=== PATIENT | female | born 1955 | race Caucasian/White ===

== ENCOUNTER 2017-07-24 21:14 | Observation (INO) | payer MEDICARE, SELFPAY ==
[2017-07-24 21:15] VITALS: BP 143/74; PULSE 85; RESP 16; TEMP 36.5; O2SAT 92; BMI 25.0
--- NOTE | 2017-07-24 21:18 | NURSING ---
CALLED FOR EKG PER RN REQUEST, PULLED OLD EKG'S FOR
--- NOTE | 2017-07-24 21:52 | EKG12_ITS ---
Test Reason : CP Blood Pressure : / mmHG Vent. Rate : 084 BPM Atrial Rate : 084 BPM P-R Int : 132 ms QRS Dur : 090 ms QT Int : 364 ms P-R-T Axes : -05 -41 023 degrees QTc Int : 430 ms Normal sinus rhythm Left axis deviation Abnormal ECG Confirmed by TRAY JUAN, LEIDY ([id number]), purchase request editor ABRAM GRANADO ([id number]) on 07/26/2017 2:37:36 PM Referred By: DIEGO Confirmed By:LEIDY FELIZ MD
--- NOTE | 2017-07-24 21:52 | RAD_ITS ---
STUDY: X-RAY CHEST REASON FOR EXAM: Female, 62 years old. Chest pain TECHNIQUE: Single frontal view of the chest. COMPARISON: None. FINDINGS: Right basilar atelectasis without acute alveolar disease. There is no demonstrated pleural abnormality. Normal size heart. Normal mediastinum and robin. Normal visualized pulmonary arteries. Normal visualized aortic arch and descending thoracic aorta. Normal visualized thoracic spine. Normal visualized ribs, clavicles, and shoulders. There is no demonstrated abnormality of the visualized soft tissue structures of the upper abdomen. RAD/Chest 1 View (Portable) IMPRESSION: Right basilar atelectasis without acute alveolar disease. Electronically Signed: Edgardo Hare MD at 22:14 EDT Tel , Service support ,
[2017-07-24 22:00] VITALS: BP 132/74; PULSE 85
--- NOTE | 2017-07-24 22:14 | ED.VISSUMM ---
- ER Visit Summary Date of Service: 07/24/17 Chief Complaint: Chest discomfort described as someone laying bricks on my chest History of Present Illness: The patient is a 62 F who presents with midsternal chest discomfort that started at 1999 while looking through magazines. She describes it as if someone is laying multiple bricks on her chest. There is associated with nausea, dyspnea without diaphoresis. She has a history of coronary disease, type 1 diabetes, hypertension hypercholesterolemia. She also reports leg swelling does have history of congestive heart failure. She denies known history of coronary disease. She had a stress test because of anxiety. She states that stress test was negative. Patient denies headache, ocular, visual or auditory symptoms. I trouble speech or swallowing. Denies any back pain or extremity pain. She denies any urologic symptoms. She denies any neurologic symptoms. Physical Examination: Patient is a pleasant elderly woman who does not appear in much discomfort. Head is atraumatic normocephalic. Pupils are equal round reactive. Extraocular muscles are intact. TMs are pearly white with landmarks noted. Nares patent with no drainage. Posterior pharynx without erythema or exudate. Uvula is midline. There is no dysphonia or dysphasia. Trachea is midline. There is no stridor with auscultation of the neck. Heart is regular without murmur, gallop or rub. S1 and S2 are normal. Lungs are clear to auscultation with good movement of air bilaterally. There is no reproducible chest pain. Abdomen is soft nontender with no hepatosplenomegaly. Negative Sauceda sign. Bowel sounds are present normal. She does have edema of both right and left lower externally. Skin appears pale. Neuro exam is nonfocal. Test Results: EKG reveals a sinus rhythm with no acute ischemic changes. Two-view portable chest x-ray interpreted by nm reveals minimal chronic changes. CBC is unremarkable. Basic metabolic panel is remarkable for glucose of 677 with a normal CO2 and anion gap. There is evidence of pseudohyponatremia with sodium 131. Troponin is less than 0.02. Emergency Department Course and Treatment: Patient was treated with aspirin and 2 nitro prior to presentation. Her pain improved markedly after 2 nitro. She will receive a third nitro and cardiac workup was undertaken. Need to evaluate for cardiac versus pulmonary versus GI etiology. In light of her description associated symptoms and risk factors concerned this is cardiac and will require admission for provocative testing. To treat patient's hyperglycemia she was given a fluid bolus and 15 units of regular insulin subcu. Treatment Plan: Patient will need admission for her hyperglycemia and to evaluate her chest heaviness. Disposition: Admit PCU Impression: 1. Chest pain 2. Hyperglycemia nonketotic, 677 3. History of type 1 diabetes 4. History of hypercholesterolemia 5. History of hypertension 6. History of congestive heart failure This note was generated with [employer] dictation software. It may contain incorrect words, spelling, and punctuation that were not noted in review of the chart prior to signing ED Disposition - Plan for ED Patient: Chief Complaint: Chest Pain Referrals: Edwin Perez [Primary Care Provider] -
[2017-07-24 22:17] LABS: Absolute Lymphocyte Count 1.41 X10^3/ul (0.83-4.51); Basophil# 0.03 X10^3/uL; Basophil% 0.6 % (0-1); Eosinophil# 0.06 X10^3/uL; Eosinophils% 1.3 % (0-5); Hematocrit 46.9 % (37-47); Hemoglobin 15.7 g/dl (12.0-15.0); Lymphocyte # 1.41 X10^3/ul (4.0); Lymphocyte % 29.5 % (19-41); Mean Corp Hgb Conc 33.5 g/gl (32-36); Mean Corpuscular Hgb 29.5 pg (27.0-32.0); Mean Platelet Vol. 9.8 fl (6.2-12.0); Monocyte# 0.32 X10^3/uL; Monocyte% 6.7 % (0-10); Neutrophil # 2.95 X10^3/uL (2.7-7.7); Neutrophil % 61.7 % (47-70); Platelet Count 174 K/mm3 (150-450); RBC Distribution Width CV 14.6 % (11.6-14.6); RBC Distribution Width SD 46.6 fl (35.1-43.9); Red Blood Count 5.33 M/mm3 (4.2-5.4); White Blood Count 4.8 K/mm3 (4.4-11.0)
[2017-07-24 22:20] LABS: POSITIVE COUNT NO; POSITIVE DIFFERENTIAL NO; POSITIVE MORPHOLOGY NO
[2017-07-24 22:29] LABS: Anion Gap 6 (5-15); BUN 18 mg/dL (7-18); BUN/Creat Ratio 17.1 RATIO (10-20); Calcium,Total 9.3 mg/dL (8.5-10.1); Chloride 100 mmol/L (98-107); Creatinine, Serum 1.05 mg/dL (0.55-1.02); EST Glomerular Filtration Rate 57 mL/min (>60); Est Glom Filt Rate - Afr Amer 69 mL/min (>60); Estimated Creatinine Clearance 54.71 ml/min; Glucose 677 mg/dL (74-106); Sodium Level 131 mmol/L (136-145)
--- NOTE | 2017-07-24 22:50 | PCM.HP.STD ---
Problem List (1) CHF (congestive heart failure) Status: Acute (2) Atypical chest pain Status: Acute (3) Hypertension Status: Chronic (4) Chronic back pain Status: Chronic (5) Sepsis Status: Acute (6) Community acquired pneumonia Status: Resolved (7) Diabetes mellitus Status: Chronic Qualifiers: Diabetes mellitus type: type 2 History of Present Illness Date of Admission: 07/24/17 Chief Complaint: chest pain today The patient is a 62 year old F with history of congestive heart failure with no medical record here, she follows anesthesiologist and critical care in [facility] came to ER with sudden onset of chest pain in the evening today. Patient further said chest pain was midsternal, while she was sitting, localized, associated with mild shortness of breath, dizziness, lightheadedness without diaphoresis. Patient has history of congestive heart failure and has bilateral lower extremity swelling. She does not remember any recent cardiac catheter stress test. In ED, her vitals were stable; except pulse ox 94% on 2 L oxygen. Chest x-ray shows right basilar atelectasis. Basic blood work shows high blood sugar 677. Anion gap normal bicarb 25. [] Past Medical History Past Medical History (Chronic Problems): Chronic Problems Hypertension (Chronic) Chronic back pain (Chronic) Diabetes mellitus (Chronic) Allergies acetaminophen [From Darvocet-N] Allergy (Verified 07/24/17 21:20) Unknown ferrous gluconate Allergy (Verified 07/24/17 21:20) Unknown propoxyphene [From Darvocet-N] Allergy (Verified 07/24/17 21:20) Unknown Sulfa (Sulfonamide Antibiotics) Allergy (Verified 07/24/17 21:20) Other fluoxetine [From Prozac] Adverse Reaction (Verified 07/24/17 21:20) Other Home Medications: Ambulatory Orders Medication Instructions Recorded Aspirin [Aspirin, Baby] 81 mg PO DAILY@0800 07/11/15 Carvedilol [Coreg (Beta Cata)] 12.5 mg PO BID 07/12/15 Cyclobenzaprine [Flexeril] 10 mg PO TID PRN PRN 07/12/15 Famotidine [Pepcid] 20 mg PO BID 07/12/15 Lisinopril [Zestril] 5 mg PO DAILY 07/12/15 Metformin HCl [Glucophage] 1,000 mg PO BIDCM 07/12/15 traMADol [Ultram] 50 mg PO Q6H PRN PRN 07/12/15 Ondansetron [Zofran Odt] 8 mg PO Q8H PRN PRN #10 tab 04/30/16 Atorvastatin Calcium [Lipitor] 40 mg PO DAILY 05/21/16 Latanoprost 0.005% [Xalatan 1 drop EACH EYE BREAKFAST 05/21/16 Opthalmic] Insulin Aspart [Novolog Flexpen 0 units SC 4X/DAY 12/15/16 ([facility])] Insulin Detemir [Levemir FlexPen] 80 units SC BREAKFAST 12/15/16 Timolol [Betimol] 1 drop EACH EYE BID 12/15/16 Insulin Detemir [Levemir FlexPen] 40 units SC DINNER 07/24/17 Surgical History: noncontributory Psychiatric History: No pertinent psych hx Smoking Status: Never smoker - *Family History Maternal History Items: Cancer Paternal History Items: Heart Disease Review of Systems Constitutional: Reports: Weakness. Denies: Chills, Fever, Weight Change HEENT: Denies: Head Aches, Sinus Congestion, Sinus Drainage Cardiovascular: Reports: Chest Pain, Edema. Denies: Palpitations Respiratory: Reports: Shortness of breath upon exertion. Denies: Cough, Shortness of breath at rest, Sputum production Gastrointestinal: Denies: Abdominal Pain, Nausea, Vomiting Genitourinary: Denies: Dysuria Musculoskeletal: Reports: Joint Pain. Denies: Joint Tenderness Skin: Denies: Rash, Wounds Neurological: Denies: Numbness, Tingling, Focal weakness Psychiatric: Denies: Anxiety, Depression, Homicidal Ideations, Suicidal Ideations Hematologic/ Lymphatic: Denies: Easy Bruising, Easy Bleeding VTE Information - Inpt Only VTE Present on Admission: No VTE Mechan Device Prophylaxis: SCD's VTE Pharm Prophylaxis ordered?: Yes Patient Problems: Active and Suspected Problems CHF (congestive heart failure) (Acute) Atypical chest pain (Acute) - Physical Exam General: Alert, Oriented x3, Cooperative HEENT: Atraumatic, PERRLA, EOMI, Normocephalic Neck: Supple, No JVD, Negative Carotid Bruits Lungs: Diminished - In bilateral lung bases, right worse than left, - - chronic dyspnea on exertion. Orthopnea Cardiovascular: Regular rate, No murmurs Abdomen: Bowel Sounds Present, Soft, Non Tender Extremities: No edema, Capillary Refill Less than 3 Seconds Skin: No rashes, No breakdown Musculoskeletal: No Tenderness to Palpation of Joints or Extremities Neurological: Cranial nerves II-XII grossly intact Psych/Mental Status: Normal Affect, Appropriate Vital Signs Temp Pulse Resp BP Pulse Ox 97.7 F L 85 16 132/74 H 92 07/24/17 21:15 07/24/17 22:00 07/24/17 21:15 07/24/17 22:00 07/24/17 21:15 Oxygen Flow Rate (L/min) 2 Oxygen Delivery Method Nasal Cannula Weight: 160 lb Body Mass Index (BMI) 25.0 Finger Stick Blood Glucose 231 Laboratory Tests Past 24 Hrs 07/24/17 07/24/17 21:29 21:29 WBC 4.8 RBC 5.33 Hgb 15.7 H Hct 46.9 MCV 88.0 MCH 29.5 MCHC 33.5 RDW 14.6 RDW Differential 46.6 H Plt Count 174 MPV 9.8 Immature Gran % (Auto) 0.200 Neut % (Auto) 61.7 Lymph % (Auto) 29.5 [place] % (Auto) 6.7 Eos % (Auto) 1.3 Baso % (Auto) 0.6 Absolute Neuts (auto) 3.0 Absolute Lymphs (auto) 1.41 Total Counted Not Reportable Sodium 131 L Potassium 5.0 Chloride 100 Carbon Dioxide 25.0 Anion Gap 6 BUN 18 Creatinine 1.05 H Estim Creat Clear Calc 54.71 Est GFR (MDRD) Af Amer 69 Est GFR (MDRD) Non-Af 57 L BUN/Creatinine Ratio 17.1 Glucose 677 H* Calcium 9.3 Troponin I < 0.02 Assessment/Plan Active and Suspected Problems CHF (congestive heart failure) (Acute) Atypical chest pain (Acute) The patient is a 62 year old F with history of congestive heart failure with no medical record here, she follows anesthesiologist and critical care in [facility] came to ER with sudden onset of chest pain in the evening today. Patient further said chest pain was midsternal, while she was sitting, localized, associated with mild shortness of breath, dizziness, lightheadedness without diaphoresis. Patient has history of congestive heart failure and has bilateral lower extremity swelling. She does not remember any recent cardiac catheter stress test. In ED, her vitals were stable; except pulse ox 94% on 2 L oxygen. Chest x-ray shows right basilar atelectasis. Basic blood work shows high blood sugar 677. Anion gap normal bicarb 25. 1. Atypical chest pain; most probably unstable angina patient denies history of coronary artery disease. Patient is being admitted on PCU. On ACS protocol with serial cardiac enzymes. If patient troponin is negative and does not seem to be in worsening heart failure in the morning can have Lexiscan stress test. 2D echo ordered. 2. History of congestive heart failure, type and etiology unclear. Try to get medical record from the anesthesiologist and critical care in [place]. Patient is on Coreg, aspirin, lisinopril and atorvastatin which are continued. 3. Diabetes mellitus type 2 with hyperglycemia: Currently patient has mild hyponatremia secondary to hyperglycemia. On Levemir. Accu-Chek before meals and at bedtime cover with NovoLog sliding scale. 4. Other chronic comorbidities include chronic back pain and history of pneumonia.: Home medication reconciliation done. DVT prophylaxis: On heparin 5000 units subcu changes twice daily and bilateral SCDs Laboratory Results 07/24/17 21:29: WBC 4.8, RBC 5.33, Hgb 15.7 H, Hct 46.9, MCV 88.0, MCH 29.5, MCHC 33.5, RDW 14.6, RDW Differential 46.6 H, Plt Count 174, MPV 9.8, Immature Gran % (Auto) 0.200, Neut % (Auto) 61.7, Lymph % (Auto) 29.5, [place] % (Auto) 6.7, Eos % (Auto) 1.3, Baso % (Auto) 0.6, Absolute Neuts (auto) 3.0, Absolute Lymphs (auto) 1.41, Total Counted Not Reportable 07/24/17 21:29: Sodium 131 L, Potassium 5.0, Chloride 100, Carbon Dioxide 25.0, Anion Gap 6, BUN 18, Creatinine 1.05 H, Estim Creat Clear Calc 54.71, Est GFR (MDRD) Af Amer 69, Est GFR (MDRD) Non-Af 57 L, BUN/Creatinine Ratio 17.1, Glucose 677 H*, Calcium 9.3, Troponin I < 0.02 Clinical Impression(s) from Imaging Studies Chest X-Ray 07/24/17 21:52 IMPRESSION: Right basilar atelectasis without acute alveolar disease. Electronically Signed: Edgardo Hare MD at 22:14 EDT Tel , Service support , Code Visit Inpatient E&M: 51339 Init Hosp L3
[2017-07-24 22:56] VITALS: PULSE 77; RESP 16; O2SAT 94
[2017-07-24 23:16] VITALS: BP 119/69; PULSE 74; RESP 16; TEMP 36.4; O2SAT 96
[2017-07-24 23:21] VITALS: BP 119/69; PULSE 76; RESP 16; O2SAT 97
--- NOTE | 2017-07-24 23:23 | ED.RN ---
called and left message at this time for on information on admission
[2017-07-25] VITALS (12 sets, daily range): BP systolic 95–116; BP diastolic 54–65; PULSE 62–75; RESP 16–18; TEMP 36.5–36.6; O2SAT 93–100; BMI 26.8
[2017-07-25 00:38] LABS: Magnesium 1.9 mg/dL (1.6-2.6)
[2017-07-25] MEDS: Furosemide 40 MG/4 ML Vial IV ×2 (00:51→11:19)
[2017-07-25 00:58] LABS: BNP,B-Type NATRIURETIC PEPTIDE 14.2 pg/mL (0-100)
--- NOTE | 2017-07-25 04:00 | EKG12_ITS ---
Test Reason : AM EKG Blood Pressure : / mmHG Vent. Rate : 060 BPM Atrial Rate : 060 BPM P-R Int : 172 ms QRS Dur : 096 ms QT Int : 448 ms P-R-T Axes : 041 -50 038 degrees QTc Int : 448 ms Normal sinus rhythm Low voltage QRS Left anterior fascicular block Abnormal ECG When compared with ECG of 15-DEC-2016 13:05, Vent. rate has decreased BY 30 BPM Nonspecific T wave abnormality no longer evident in Anterior leads QT has shortened Confirmed by TRAY JUAN, LEIDY ([id number]), editorial project manager ABRAM GRANADO ([id number]) on 07/29/2017 3:46:54 PM Referred By: WILBERTO Confirmed By:LEIDY FELIZ MD
[2017-07-25 05:35] LABS: Hematocrit 38.3 % (37-47); Hemoglobin 12.9 g/dl (12.0-15.0); Mean Corp Hgb Conc 33.7 g/gl (32-36); Mean Corpuscular Hgb 28.8 pg (27.0-32.0); Mean Corpuscular Volume 85.5 fL (81-99); Mean Platelet Vol. 9.4 fl (6.2-12.0); Platelet Count 168 K/mm3 (150-450); RBC Distribution Width CV 14.5 % (11.6-14.6); RBC Distribution Width SD 45.3 fl (35.1-43.9); Red Blood Count 4.48 M/mm3 (4.2-5.4); White Blood Count 4.4 K/mm3 (4.4-11.0)
[2017-07-25 05:37] LABS: Scan Indicated on CBC? Y/N NO
[2017-07-25 05:54] LABS: International Normalized Ratio 1.1; Partial Thromboplast Time 23.9 Seconds (24.1-36.2); Prothrombin Time (Protime)PT. 14.1 SECONDS (11.7-14.9)
--- NOTE | 2017-07-25 05:55 | ECHOD_ITS ---
Reason For Study: CHF Procedure This was a 2D Doppler, Color Flow transthoracic echocardiogram. Exam performed in department. Left Ventricle Normal LV size. Left ventricular systolic function is normal. The estimated ejection fraction is 60 %. Transmitral diastolic flow velocities suggest mild (stage 1) diastolic dysfunction (reversed pattern). No regional wall motion abnormalities noted. Right Ventricle Normal RV size. Normal systolic function. Atria Normal left atrium. Normal right atrium. Mitral Valve Normal mitral valve. Trivial mitral valve insufficiency. Tricuspid Valve Normal tricuspid valve. Mild to moderate (1-2+) tricuspid valve insufficiency. Pulmonary artery systolic pressure is 29 mmHg. Aortic Valve Trisinus/trileaflet aortic valve. Mild focal aortic valve calcification. Trivial eccentric aortic valve insufficiency. Pulmonic Valve Normal pulmonic valve. Great Vessels Normal aortic root. The pulmonary artery is normal size. Normal inferior vena cava. Pericardium/Pleural No pericardial effusion. MMode/2D Measurements & Calculations LVIDd: 4.0 cm IVSd: 1.2 cm LVOT diam: 2.1 cm LVIDs: 2.9 cm LVPWd: 1.1 cm LVOT area: 3.5 cm2 RVDd: 2.8 cm FS: 27.3 % Ao root diam: 3.7 cm LAV(MOD-bp): 50.6 ml EDV(MOD-sp4): 99.1 ml LAV(MOD-bp) Indexed: 27.5 ml/m2 ESV(MOD-sp4): 36.6 ml LAV(MOD-sp2): 58.4 ml EF(MOD-sp4): 63.1 % LAV(MOD-sp4): 34.9 ml SV(MOD-sp4): 62.5 ml LA A4 area: 13.5 cm2 RA A4 area: 13.4 cm2 Doppler Measurements & Calculations MV E max eris: 63.1 cm/sec Lat Peak E' Eris: 11.6 cm/sec Med Peak E' Eris: 7.9 cm/sec MV A max eris: 84.7 cm/sec E/E' lat: 5.4 E/E' med: 8.0 MV E/A: 0.75 Ao V2 max: 210.1 cm/sec AI max eris: 342.0 cm/sec LV V1 max: 80.4 cm/sec Ao max P.7 mmHg AI max P.8 mmHg LV V1 max P.6 mmHg Ao V2 mean: 143.9 cm/sec AI dec slope: 119.8 cm/sec2 LV V1 mean P.4 mmHg Ao mean P.5 mmHg AI P1/2t: 836.0 msec LV V1 mean: 54.4 cm/sec Ao V2 VTI: 45.3 cm LV V1 VTI: 19.3 cm DEDRICK(I,D): 1.5 cm2 DEDRICK(V,D): 1.3 cm2 SV(LVOT): 66.6 ml TR max eris: 248.9 cm/sec TR max P.8 mmHg Interpretation Summary Normal LV size. Left ventricular systolic function is normal. The estimated ejection fraction is 60 %. Transmitral diastolic flow velocities suggest mild (stage 1) diastolic dysfunction (reversed pattern). Trivial eccentric aortic valve insufficiency. Mild focal aortic valve calcification. Ordering Physician: Guillermo Kelly Referring Physician: DALY PAGE Performed By: Leida Romano, BRADY, RVT
[2017-07-25] MEDS: Aspirin E.C. 81 MG Tablet PO (06:14)
[2017-07-25] MEDS: Lisinopril 5 MG Tablet PO (06:14)
[2017-07-25 06:20] LABS: Bedside Glucose 224 mg/dL (70-110)
[2017-07-25 07:28] LABS: ALB/GLOB Ratio 0.7 RATIO (0.9-2.4); AST(SGOT) 10 U/L (15-37); Alanine Aminotransfer ALT/SGPT 11 U/L (13-56); Albumin, Serum 2.6 g/dL (3.2-5.0); Alkaline Phosphatase 93 U/L (45-117); Anion Gap 7 (5-15); BUN 23 mg/dL (7-18); BUN/Creat Ratio 42.4 RATIO (10-20); Calcium,Total 9.2 mg/dL (8.5-10.1); Chloride 103 mmol/L (98-107); Cholesterol 152 mg/dL (200); Creatinine, Serum 0.54 mg/dL (0.55-1.02); EST Glomerular Filtration Rate 121 mL/min (>60); Est Glom Filt Rate - Afr Amer 147 mL/min (>60); Estimated Creatinine Clearance 106.39 ml/min; Globulin 3.9 g/dL (2.2-4.2); Glucose 202 mg/dL (74-106); High Density Lipoprotein 54 mg/dL; Potassium 3.5 mmol/L (3.5-5.1); Protein, Total 6.5 g/dL (6.4-8.2); Sodium Level 137 mmol/L (136-145); Thyroid Stim Hormone (TSH) 2.19 uIU/mL (0.358-3.74); Triglycerides 117 mg/dL; Very Low Density Lipoprotein 23 mg/dL (5-40)
[2017-07-25 08:09] LABS: Hemoglobin A1c 12.9 % (4.2-6.3)
--- NOTE | 2017-07-25 09:52 | STRESSREP ---
Stress Test Report Pharmacologic myocardial perfusion stress test. 62-year-old lady with a history of chest pain. Stress protocol: Resting EKG demonstrates normal sinus rhythm with a rate of 68 bpm normal intervals and noted resting blood pressure is 114/78 mmHg. 0.4 mg of regadenoson was infused per usual protocol followed by rapid intravenous saline flush injection continuous EKG monitoring was performed. At rest there were no ST or T-wave changes noted suggest abnormal flow reserve at peak infusion no ST or T-wave changes were noted suggest abnormal flow reserve. The maximum heart rate attained was 98 bpm which was 61% of maximum predicted heart rate the maximum workload was 1 metabolic equivalent. No clinical angina was noted. The resting blood pressure is 114/78 with a peak blood pressure 120/70 mmHg. Myocardial perfusion protocol: 11.8 mCi of technetium 99m sestamibi was injected at rest. 0.4 mg regadenoson was infused per usual protocol. At peak infusion 36.0 mCi of technetium 99m sestamibi was injected stress images were obtained stress and rest images were reconstructed and compared in the short axis vertical long and horizontal long axis. Gated images were also obtained. Perfusion SPECT analysis: Review of the stress images demonstrate normal uptake of tracer noted in all areas of the myocardium. The resting images similarly demonstrate normal uptake of tracer noted in all areas of the myocardium. No areas of reversibility are noted suggest ischemia no previous infarct is noted. Gated SPECT analysis: The gated ejection fraction is noted to be 67%. Conclusion: Normal pharmacologic myocardial perfusion stress test. Preserved ejection fraction.
[2017-07-25] MEDS: Carvedilol 12.5 MG Tablet PO (11:18)
[2017-07-25] MEDS: Latanoprost 0.005% 1 Bottle 1 DRP EACH EYE (11:18)
[2017-07-25] MEDS: Heparin Injection (Vial) 5,000 UNIT/ML VIAL 5000 UNIT SC (11:19)
[2017-07-25] MEDS: Famotidine 20 MG Tablet PO (11:20)
[2017-07-25 11:21] LABS: Bedside Glucose 253 mg/dL (70-110)
[2017-07-25] MEDS: Timolol 0.5% 5ML OPTH.BTL 1 DRP EACH EYE (11:27)
[2017-07-25] MEDS: Metoprolol Tartrate 25 MG Tablet 12.5 MG PO (11:29)
[2017-07-25] MEDS: Nitroglycerin Oint 1 INCH PACKET TRANSDERM. (11:30)
--- NOTE | 2017-07-25 13:12 | PCM.DC ---
- Discharge Diagnoses Current Active Problems: Current Active and Chronic Problems CHF (congestive heart failure) (Acute) Atypical chest pain (Acute) You will use the following diet at home:: Cardiac Discharge Activity: Return to Normal Activity Instructions: ED Chest Pain NonCardiac Allergies/Adverse Reactions: Allergies acetaminophen [From Darvocet-N] Allergy (Verified 07/24/17 21:20) Unknown ferrous gluconate Allergy (Verified 07/24/17 21:20) Unknown propoxyphene [From Darvocet-N] Allergy (Verified 07/24/17 21:20) Unknown Sulfa (Sulfonamide Antibiotics) Allergy (Verified 07/24/17 21:20) Other fluoxetine [From Prozac] Adverse Reaction (Verified 07/24/17 21:20) Other Medications to take at Discharge Aspirin [Aspirin, Baby] 81 mg PO DAILY@0800 07/11/15 Carvedilol [Coreg (Beta Cata)] 12.5 mg PO BID 07/12/15 Cyclobenzaprine [Flexeril] 10 mg PO TID PRN PRN 07/12/15 Famotidine [Pepcid] 20 mg PO BID 07/12/15 Lisinopril [Zestril] 5 mg PO DAILY 07/12/15 Metformin HCl [Glucophage] 1,000 mg PO BIDCM 07/12/15 traMADol [Ultram] 50 mg PO Q6H PRN PRN 07/12/15 Ondansetron [Zofran Odt] 8 mg PO Q8H PRN PRN #10 tab 04/30/16 Atorvastatin Calcium [Lipitor] 40 mg PO DAILY 05/21/16 Latanoprost 0.005% [Xalatan Opthalmic] 1 drop EACH EYE BREAKFAST 05/21/16 Insulin Aspart [Novolog Flexpen] 0 units SC 4X/DAY 12/15/16 Insulin Detemir [Levemir FlexPen] 80 units SC BREAKFAST 12/15/16 Insulin Detemir [Levemir FlexPen] 40 units SC DINNER 07/24/17 Paroxetine [Paxil] 40 mg PO DAILY 07/25/17 Timolol 0.5% [Timoptic] 1 drop EACH EYE BID 07/25/17 Primary Care Physician: Edwin Perez [Primary Care Provider] - In 1 Week Proposed Discharge Date: 07/25/17
--- NOTE | 2017-07-25 13:14 | PCM.DC.SUM ---
Discharge Date and Diagnosis Date of Admission: 07/24/17 Date of Discharge: 07/25/17 - Primary Discharge Diagnosis Active and Suspected Problems CHF (congestive heart failure) (Acute) Atypical chest pain (Acute) - Secondary Discharge Diagnosis Chronic Problems Hypertension (Chronic) Chronic back pain (Chronic) Diabetes mellitus (Chronic) Hospital Course and Treatment Imaging Results: 07/25/17 05:55 Echo Complete [ECHO] AM (NON MEDS) Nuclear Stress Test - Chemical [NM] Routine Summary of Care Provided: This is a 62 year old F with history of congestive heart failure with no medical record here, she follows donkey doctor in [facility] came to ED with sudden onset of chest pain , she ruled out acute coronary syndrome with negative cardiac enzymes and then underwent a stress and that was negative for ischemia. The patient was discharged home in stable condition symptom-free. She was recommended to follow-up with her primary care physician and her donkey doctor. Exam of the time of discharge; vital signs were stable. He was alert and oriented to time place and person. He did not appear to be any form of distress. S1 and S2 heard no murmur or gallop Lung exam was clear to auscultation with no adventitious sounds. Abdomen was soft nontender with normal bowel sounds. extremity exam did not reveal any edema, palpable pulses bilaterally. Neurologic exam was grossly intact. Discharge Activity: Return to Normal Activity Home Medications: Medications to take at Discharge Aspirin [Aspirin, Baby] 81 mg PO DAILY@0800 07/11/15 Carvedilol [Coreg (Beta Cata)] 12.5 mg PO BID 07/12/15 Cyclobenzaprine [Flexeril] 10 mg PO TID PRN PRN 07/12/15 Famotidine [Pepcid] 20 mg PO BID 07/12/15 Lisinopril [Zestril] 5 mg PO DAILY 07/12/15 Metformin HCl [Glucophage] 1,000 mg PO BIDCM 07/12/15 traMADol [Ultram] 50 mg PO Q6H PRN PRN 07/12/15 Ondansetron [Zofran Odt] 8 mg PO Q8H PRN PRN #10 tab 04/30/16 Atorvastatin Calcium [Lipitor] 40 mg PO DAILY 05/21/16 Latanoprost 0.005% [Xalatan Opthalmic] 1 drop EACH EYE BREAKFAST 05/21/16 Insulin Aspart [Novolog Flexpen] 0 units SC 4X/DAY 12/15/16 Insulin Detemir [Levemir FlexPen] 80 units SC BREAKFAST 12/15/16 Insulin Detemir [Levemir FlexPen] 40 units SC DINNER 07/24/17 Paroxetine [Paxil] 40 mg PO DAILY 07/25/17 Timolol 0.5% [Timoptic] 1 drop EACH EYE BID 07/25/17 Primary Care Physician: Edwin Perez [Primary Care Provider] - In 1 Week Patient Instructions: ED Chest Pain NonCardiac Medical Necessity - Tobacco Use Smoking Status: Never smoker Meaningful Use Info Meaningful Use Diagnoses (Choose all that apply): None applicable
--- NOTE | 2017-07-25 14:53 | CHAPLAIN ---
Type of Pastoral Visit _x__ Initial Visit ___ Follow-up Visit ___ On-call Visit ___ General Patient Visit ___ Spiritual Assessment ___ Family Conference ___ Bereavement ___ Rapid Response ___ Code Blue ___ Other (describe below) Pastoral Care Referral From _x__ Patient ___ Family ___ Nurse ___ Physician ___ Tube Roller ___ Patient Care Assistant ___ Other (describe below) Sacrament/Intervention _x__ Active listening ___ Anointing ___ Alevism _x__ Bereavement ___ Communion ___ Judie exploration ___ _x__ Life review _x__ Prayer ___ Reconciliation ___ Sacrament of Sick _x__ Supportive presence ___ Wedding ___ Other (describe below) Pastoral Comments patient spoke of her brother's in April 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
== END 2017-07-25 13:13 | disposition home or self-care (01) ==
LOC: ED 22:40 → PCU 23:13
PROVIDERS: Admitting Provider Internal Medicine; Emergency Provider Emergency Medicine; Family Provider Internal Medicine Infectious Disease; PCP Internal Medicine Infectious Disease; Visit Provider Internal Medicine
DX: R07.89 Other chest pain (principal); I11.0 Hypertensive heart disease with heart failure; I50.9 Heart failure, unspecified; I25.10 Atherosclerotic heart disease of native coronary artery without angina pectoris; E78.00 Pure hypercholesterolemia, unspecified; Z79.82 Long term (current) use of aspirin; Z79.4 Long term (current) use of insulin; Z79.899 Other long term (current) drug therapy; F41.9 Anxiety disorder, unspecified; G89.29 Other chronic pain; M54.9 Dorsalgia, unspecified; E87.1 Hypo-osmolality and hyponatremia; E11.65 Type 2 diabetes mellitus with hyperglycemia
CPT/HCPCS: 36415; 71045; 78452; 80048; 80053; 80061; 82962; 83036; 83735; 83880; 84443; 84484; 85025; 85027; 85610; 85730; 93005; 93017; 93306; 96372; 96374; 96376; 97162; 97165; 99218; 99285; A9500; J7040; A4216; G0378; J1940; J2785

== ENCOUNTER → 2018-01-25 11:31 | Outpatient (CLI) | payer MEDICARE, SELFPAY ==
--- NOTE | 2018-01-25 19:10 | LEAS_ITS ---
Arterial Study - Arterial Study Arterial Study: This is a 62-year-old female who presents with a history of hypertension, diabetes mellitus, and congestive heart failure. She has a history of peripheral arterial occlusive disease, and is brought to the noninvasive vascular laboratory at this time for the purpose of bilateral noninvasive lower extremity arterial assessment. Doppler signal assessment was used to evaluate the pulses at ankle level bilaterally. The posterior tibial and dorsalis pedis pulses were triphasic bilaterally. Segmental limb pressures were obtained bilaterally. The right ankle pressure, as determined by posterior tibial pulse, was measured at 152 mmHg. The right ankle pressure, as determined by dorsalis pedis pulse, was measured at 139 mmHg. The right digital pressure was measured at 106 mmHg. The left ankle pressure, as determined by posterior tibial pulse, was measured at 155 mmHg. The left ankle pressure, as determined by dorsalis pedis pulse, was measured at 138 mmHg. The left digital pressure was measured at 118 mmHg. Pulse?volume recordings were obtained bilaterally and segmentally. Waveform amplitudes appeared to be satisfactory at all levels bilaterally, including low thigh, calf, ankle, and digital levels. Resting ankle?brachial indices were calculated bilaterally. The resting right ankle?brachial index was calculated to be 1.29. The resting left ankle?brachial index was calculated to be 1.31. Digital?brachial indices were calculated bilaterally. The right digital- brachial index was calculated to be 0.90. The left digital-brachial index was calculated to be 1.00. Impression: Based upon the findings of this resting noninvasive lower extremity study, there is no evidence of significant atherosclerotic peripheral arterial occlusive disease in the lower extremities bilaterally. Triphasic waveforms were noted at ankle level bilaterally. Resting ankle?brachial indices were bilaterally normal. Digital-brachial indices were also normal bilaterally. In summary, this represents a normal resting noninvasive lower extremity arterial study bilaterally
== END ==
PROVIDERS: Family Provider Internal Medicine Infectious Disease; PCP Internal Medicine Infectious Disease; Referring Provider Podiatrist; Visit Provider Podiatrist
DX: I73.9 Peripheral vascular disease, unspecified (principal)
CPT/HCPCS: 93923

== ENCOUNTER 2018-04-17 11:24 | Emergency (ER) | payer MEDICARE, SELFPAY ==
[2018-04-17] VITALS (8 sets, daily range): BP systolic 108–134; BP diastolic 53–85; PULSE 69–93; RESP 11–20; TEMP 36.8–36.9; O2SAT 93–98; BMI 29.1
--- NOTE | 2018-04-17 11:32 | EKG12_ITS ---
Test Reason : CP Blood Pressure : / mmHG Vent. Rate : 086 BPM Atrial Rate : 086 BPM P-R Int : 142 ms QRS Dur : 138 ms QT Int : 412 ms P-R-T Axes : -01 -54 038 degrees QTc Int : 493 ms Normal sinus rhythm Left axis deviation Non-specific intra-ventricular conduction block Poor R wave progression Tahir lateral ME, age undetermined, cannot be excluded ACUTE ME / STEMI Abnormal ECG Confirmed by BAM JUAN, TONJA ([id number]), newspaper editor managing ABRAM GRANADO ([id number]) on 04/19/2018 1:52:21 PM Referred By: MARY KATE Confirmed By:TONJA KUHN MD
--- NOTE | 2018-04-17 11:32 | RAD_ITS ---
STUDY: X-RAY CHEST REASON FOR EXAM: Female, 63 years old. Chest pain. TECHNIQUE: Single AP portable view of the chest. COMPARISON: Comparison is made with prior study dated July 24, 2017. FINDINGS: EKG electrodes are seen. Mild increased linear markings at the right lung base suggestive of a linear atelectasis and/or scarring. Focal linear increased markings at left lung base suggestive of scarring and/or atelectasis. There is no demonstrated pleural abnormality. Normal size heart. Normal mediastinum and robin. Normal visualized pulmonary arteries. There is atherosclerotic tortuosity of the aortic arch and descending thoracic aorta. There are degenerative changes of the visualized thoracic spine. Normal visualized ribs, clavicles, and shoulders. There is no demonstrated abnormality of the visualized soft tissue structures of the upper abdomen. RAD/Chest 1 View (Portable) IMPRESSION: Stable mild increased markings at the lung bases suggestive scarring. Electronically Signed: Bonifacio Wiseman MD at 12:16 EST Tel [phone], Service support ,
--- NOTE | 2018-04-17 11:33 | VDLE_ITS ---
Reason For Study: PAIN RIGHT GSV is normal. CFV is compressible, spontaneous, phasic, competent and demonstrates normal augmentation. FV is compressible, spontaneous, phasic, competent and demonstrates normal augmentation. POP V is compressible, spontaneous, phasic, competent and demonstrates normal augmentation. T/P Trunk is compressible. PTV is compressible. RT PerV is compressible. Procedure Exam performed portable in ED. A preliminary report was called and/or faxed to ED. Interpretation Summary Deep veins of the right lower extremity are patent and compressible segmentally. There is no evidence of right lower extremity deep vein thrombosis. Valvular competence appears intact within the proximal deep venous system on the right . The right greater saphenous vein appears patent and compressible segmentally. Ordering Physician: Jasbir Qiu Referring Physician: DALY PAGE Performed By: Leida Romano, BRADY, RVT
--- NOTE | 2018-04-17 11:39 | ED.DCSUM_ITS ---
- ER Visit Summary Date of Service: 04/17/18 Chief Complaint: Chest pain, right leg pain History of Present Illness: The patient is a 63 F who complains of chest pain for 4 days. She states it started 4 days ago. She bent over and had sharp pain in the right chest. It is still present but worse with bending over. She has nausea. No shortness of breath. She states that her right leg is painful and red. She states that she feels weak overall. She denies any slurred speech or facial droop. No lateralizing weakness. No history of DVT or PE in the past. Physical Examination: Vital signs reviewed. HEENT exam unremarkable. Heart is regular rate and rhythm without murmurs. Lungs are clear to auscultation. She does have right-sided chest tenderness to palpation. Abdomen is soft and nontender. Extremities reveal trace, symmetric edema. Skin exam shows trace erythema to the right tibial area. Neurologic exam normal. Test Results: EKG is normal sinus rhythm with nonspecific ST and T wave changes. Chest x-ray reveals chronic changes. Duplex ultrasound of the right leg reveals no DVT. Laboratory studies unremarkable except for a potassium of 2.9 Emergency Department Course and Treatment: The patient was given aspirin by EMS. I gave her Zofran for nausea. I will give her K-Dur for the low potassium. I feel that her chest pain is likely musculoskeletal as it is on the right side and reproducible with palpation and worse with bending over. No evidence of pericarditis on the EKG. I feel she can be discharged home to use NSAIDs. She will follow-up with her PCP for recheck of her potassium. Treatment Plan: [] Disposition: Discharge Impression: Chest pain, hypokalemia This note was generated with [employer] dictation software. It may contain incorrect words, spelling, and punctuation that were not noted in review of the chart prior to signing ED Disposition - Plan for ED Patient: Chief Complaint: Chest Pain Referrals: Edwin Perez [Primary Care Provider] -
[2018-04-17 11:41] LABS: Absolute Lymphocyte Count 1.43 X10^3/ul (0.83-4.51); Absolute Neutrophil Count 2.2 X10^3/uL (2.0-7.7); Basophil# 0.07 X10^3/uL; Basophil% 1.7 % (0-1); Eosinophil# 0.07 X10^3/uL; Eosinophils% 1.7 % (0-5); Hematocrit 41.8 % (37-47); Hemoglobin 14.5 g/dl (12.0-15.0); Lymphocyte # 1.43 X10^3/ul (4.0); Lymphocyte % 35.7 % (19-41); Mean Corp Hgb Conc 34.7 g/gl (32-36); Mean Corpuscular Hgb 29.1 pg (27.0-32.0); Mean Corpuscular Volume 83.9 fL (81-99); Mean Platelet Vol. 9.4 fl (6.2-12.0); Monocyte# 0.27 X10^3/uL; Monocyte% 6.7 % (0-10); Neutrophil # 2.15 X10^3/uL (2.7-7.7); Neutrophil % 53.7 % (47-70); Platelet Count 217 K/mm3 (150-450); RBC Distribution Width CV 13.5 % (11.6-14.6); RBC Distribution Width SD 40.9 fl (35.1-43.9); Red Blood Count 4.98 M/mm3 (4.2-5.4)
[2018-04-17 11:42] LABS: POSITIVE COUNT NO; POSITIVE DIFFERENTIAL NO; POSITIVE MORPHOLOGY NO
--- NOTE | 2018-04-17 11:51 | NURSING ---
CHEMISTRIES HEMOLIZED
[2018-04-17] MEDS: Ondansetron 4 MG/2 ML Vial IV (12:31)
[2018-04-17 12:42] LABS: Anion Gap 9 (5-15); BUN 15 mg/dL (7-18); BUN/Creat Ratio 28.1 RATIO (10-20); Calcium,Total 8.8 mg/dL (8.5-10.1); Chloride 105 mmol/L (98-107); Creatinine, Serum 0.53 mg/dL (0.55-1.02); EST Glomerular Filtration Rate 123 mL/min (>60); Est Glom Filt Rate - Afr Amer 149 mL/min (>60); Estimated Creatinine Clearance 107.03 ml/min; Glucose 61 mg/dL (74-106); Potassium 2.9 mmol/L (3.5-5.1); Sodium Level 140 mmol/L (136-145)
--- NOTE | 2018-04-17 12:51 | ED.DEP ---
ED Disposition - Plan for ED Patient: Disposition: Home or Assisted Living Chief Complaint: Chest Pain Instructions: ED Chest Pain Atypical Unkn Cause Referrals: Edwin Perez [Primary Care Provider] -
--- OUTSIDE RECORDS SUMMARY | 2018-06-19 23:25 | XMS RPT_ITS ---
:1955 Author Organization OHIP Support Name Relationship Address Phone D Unavailable Unavailable Unavailable ADRIANMAGNOLIAON Unavailable [address] + [place] [address] D Unavailable Unavailable Unavailable ADRIANMAGNOLIAON Unavailable [address] + [place] [address] NOT GIVEN Unavailable Unavailable Unavailable ADRIANMAGNOLIAON Unavailable [address] + [place] [address] ADRIANMAGNOLIAON Unavailable [address] [place] [address] NOT GIVEN Unavailable Unavailable Unavailable ADRIANMAGNOLIAON Unavailable [address] + [place] [address] ADRIANMAGNOLIAON Unavailable [address] [place] [place] [address] NOT GIVEN Unavailable Unavailable Unavailable ADRIANMAGNOLIAON Unavailable [address] + [place] [address] ADRIANMAGNOLIAON Unavailable [address] [place] [address] NOT GIVEN Unavailable Unavailable Unavailable ADRIANMAGNOLIAON Unavailable [address] + [place] [address] ADRIANMAGNOLIAON Unavailable [address] [place] [address] NOT GIVEN Unavailable Unavailable Unavailable ADRIANMAGNOLIAON Unavailable [address] + [place] [address] ADRIANMAGNOLIAON Unavailable [address] [place] [place] [address] NOT GIVEN Unavailable Unavailable Unavailable D Unavailable Unavailable Unavailable ADRIANMAGNOLIAON Unavailable [address] + [place] [address] D Unavailable Unavailable Unavailable ADRIANMAGNOLIAON Unavailable [address] + [place] [address] D Unavailable Unavailable Unavailable RONAK CAMPBELL Unavailable [address] + [place] [address] D Unavailable Unavailable Unavailable RONAK CAMPBELL Unavailable [address] + [place] [address] D Unavailable Unavailable Unavailable RONAK CAMPBELL Unavailable [address] + [place] [address] Care Team Providers Name Role Phone DALY PAGE MD Admitting Unavailable DALY PAGE MD Attending Unavailable ADLY PAGE MD Primary Care Unavailable DALY PAGE MD Consulting Unavailable PROVIDER, UNKNOWN Consulting Unavailable PROVIDER, UNKNOWN Consulting Unavailable PROVIDER, UNKNOWN Consulting Unavailable DALY PAGE MD Admitting Unavailable DALY PAGE MD Attending Unavailable DALY PAGE MD Primary Care Unavailable DALY PAGE MD Consulting Unavailable PROVIDER, UNKNOWN Consulting Unavailable PROVIDER, UNKNOWN Consulting Unavailable PROVIDER, UNKNOWN Consulting Unavailable JAI BATISTA MD Admitting Unavailable JAI BATISTA MD Attending Unavailable JAI BATISTA MD Primary Care Unavailable DALY PAGE MD Consulting Unavailable PROVIDER, UNKNOWN Consulting Unavailable PROVIDER, UNKNOWN Consulting Unavailable PROVIDER, UNKNOWN Consulting Unavailable ROHIT, PRANEETH Admitting Unavailable SAAD BEEABH Attending Unavailable ROHIT, PRANEETH Primary Care Unavailable DALY PAGE MD Consulting Unavailable PROVIDER, UNKNOWN Consulting Unavailable PROVIDER, UNKNOWN Consulting Unavailable PROVIDER, UNKNOWN Consulting Unavailable JAI BATISTA MD Admitting Unavailable JAI BATISTA MD Attending Unavailable JAI BATISTA MD Primary Care Unavailable DALY PAGE MD Consulting Unavailable PROVIDER, UNKNOWN Consulting Unavailable PROVIDER, UNKNOWN Consulting Unavailable PROVIDER, UNKNOWN Consulting Unavailable DALY PAGE MD Admitting Unavailable DALY PAGE MD Attending Unavailable DALY PAGE MD Primary Care Unavailable DALY PAGE MD Consulting Unavailable PROVIDER, UNKNOWN Consulting Unavailable PROVIDER, UNKNOWN Consulting Unavailable PROVIDER, UNKNOWN Consulting Unavailable DALY PAGE Primary Care Unavailable Jasbir Qiu Attending Unavailable DALY PAGE Primary Care Unavailable Wilberto, Guillermo Admitting Unavailable Milagros Oliveros Attending Unavailable Wilberto, Guillermo Admitting Unavailable Wilberto, Guillermo Attending Unavailable OMDALY TALLEY Primary Care Unavailable Wilberto, Guillermo Consulting Unavailable Wilberto, Guillermo Admitting Unavailable DALY PAGE Primary Care Unavailable Milagros Oliveros Consulting Unavailable Roxanne Hayes Attending Unavailable Jamal Tavarez Attending Unavailable Jamal Tavarez Attending Unavailable Guillermo Kelly Referring Unavailable Silvestre Rodgers Attending Unavailable Silvestre Rodgers Referring Unavailable OMRAN, YASSER Primary Care Unavailable PROBLEMS PROBLEMS DATE TYPE CONDITION / CODE ATTENDING STATUS SOURCE Principle Type 2 diabetes XIOMARA PAGEER Active Dawit Pomerene 8 Diagnosis mellitus without [facility] complications / Hospital E119(ICD-10) Repository Admitting Radiculopathy, site LATOUF, BUTROS Active [facility] 8 Diagnosis unspecified / [facility] M5410(ICD-10) Hospital Repository Principle Spondylosis, LATOUF, BUTROS Active [facility] 8 Diagnosis unspecified / [facility] M479(ICD-10) Hospital Repository Secondary Loss of height / LATOUF, BUTROS Active Dawit [facility] 8 Diagnosis M75712(ICD-10) [facility] Hospital Repository Secondary Constipation, LATOUF, BUTROS Active Dawit Pomerene 8 Diagnosis unspecified / [facility] K5900(ICD-10) Hospital Repository Secondary Body mass index (BMI) XIOMARA PAGEER Active [facility] 8 Diagnosis 27.0-27.9, adult / [facility] Z6827(ICD-10) Hospital Repository Principle Type 2 diabetes OMXIOMARA TALLEYER Active [facility] 8 Diagnosis mellitus with [facility] hyperglycemia / Hospital E1165(ICD-10) Repository Unknown R07.9 - Chest pain, Corby, Line [place] Active Anika 8 unspecified / Community R07.9(ICD-10) Hospital Repository Unknown R07.89 - Other chest Corby, Line [place] Active Anika 8 pain / R07.89(ICD-10) [facility] Repository Unknown I50.9 - Heart failure, Corby, Jamal Active [facility] 8 unspecified / Community I50.9(ICD-10) Hospital Repository Unknown R94.31 - Abnormal Corby, Jamal Active [facility] 8 electrocardiogram Community [ECG] [EKG] / Hospital R94.31(ICD-10) Repository PROCEDURES PROCEDURES No Procedure Records FoundRESULTS RESULTS 12 LEAD ELECTROCARDIOGRAM Observed: 04/19/2018 Status: F Source: [facility] Cardiovascular Services [address] [place] [address] 12 Lead EKG 04/17/18 1133 MR#: [id number] Acct: [id number] Name: VENUS CAMPBELL Rep #: [id number] : 1955 63 From: Jhonathan Kuhn MD Attending Dr: Status: DEP ER Ordering Dr: Jasbir Qiu MD Date: 04/17/18 Location: ED Sex: F C Admitted: Test Reason : CP Blood Pressure : / mmHG Vent. Rate : 086 BPM Atrial Rate : 086 BPM P-R Int : 142 ms QRS Dur : 138 ms QT Int : 412 ms P-R-T Axes : -01 -54 038 degrees QTc Int : 493 ms Normal sinus rhythm Left axis deviation Non-specific intra-ventricular conduction block Poor R wave progression Tahir lateral [place], age undetermined, cannot be excluded ACUTE [place] / STEMI Abnormal ECG Confirmed by BAM JUAN, JHONATHAN ([id number]), editorial assistant ABRAM GRANADO ([id number]) on 04/19/2018 1:52:21 PM Referred By: MARY KATE Confirmed By:JHONATHAN KUHN MD 04/19/18 1352 Date Jhonathan Kunh MD CC: Jasbir Qiu MD; Daly Page Signed VENOUS DUPLEX LOWER Observed: 04/18/2018 Status: F Source: [facility] EXTREMITY 4:17 PM [facility] Cardi[facility] Services [address] [place] [address] Venous Duplex US, Unilateral 04/17/18 1148 MR#: [id number] Acct: [id number] Name: VENUS CAMPBELL Rep #: [id number] : 1955 63 From: Michael Mendez MD Attending Dr: Status: DEP ER Ordering Dr: Jasbir Qiu MD Date: 04/17/18 Location: ED Sex: F C Admitted: Reason For Study: PAIN RIGHT GSV is normal. CFV is compressible, spontaneous, phasic, competent and demonstrates normal augmentation. FV is compressible, spontaneous, phasic, competent and demonstrates normal augmentation. POP V is compressible, spontaneous, phasic, competent and demonstrates normal augmentation. T/P Trunk is compressible. PTV is compressible. RT PerV is compressible. Procedure Exam performed portable in ED. A preliminary report was called and/or faxed to ED. Interpretation Summary Deep veins of the right lower extremity are patent and compressible segmentally. There is no evidence of right lower extremity deep vein thrombosis. Valvular competence appears intact within the proximal deep venous system on the right . The right greater saphenous vein appears patent and compressible segmentally. Ordering Physician: Jasbir Qiu Referring Physician: DALY PAGE Performed By: Leida Romano, BRADY, RVT 04/18/18 1617 Date Michael Mendez MD CC: Jasbir Qiu MD; Daly Page Date Dictated: 04/17/18 1148 Date Transcribed: 04/18/18 161 Assistant Program Director: Signed EMERGENCY DEPARTMENT Observed: 04/17/2018 Status: F Source: [facility] SUMMARY 12:51 PM [facility] REPOSITORY [facility] Medical Records Department [address] [place] [address] Emergency Department Summary 04/17/18 1133 MR#: [id number] Acct: [id number] Name: VENUS CAMPBELL Rep #: [id number] : 1955 63 From: Jasbir Qiu MD PCP: Daly Page Status: REG ER - ER Visit Summary Date of Service: 04/17/18 Chief Complaint: Chest pain, right leg pain History of Present Illness: The patient is a 63 F who complains of chest pain for 4 days. She states it started 4 days ago. She bent over and had sharp pain in the right chest. It is still present but worse with bending over. She has nausea. No shortness of breath. She states that her right leg is painful and red. She states that she feels weak overall. She denies any slurred speech or facial droop. No lateralizing weakness. No history of DVT or PE in the past. Physical Examination: Vital signs reviewed. HEENT exam unremarkable. Heart is regular rate and rhythm without murmurs. Lungs are clear to auscultation. She does have right-sided chest tenderness to palpation. Abdomen is soft and nontender. Extremities reveal trace, symmetric edema. Skin exam shows trace erythema to the right tibial area. Neurologic exam normal. Test Results: EKG is normal sinus rhythm with nonspecific ST and T wave changes. Chest x-ray reveals chronic changes. Duplex ultrasound of the right leg reveals no DVT. Laboratory studies unremarkable except for a potassium of 2.9 Emergency Department Course and Treatment: The patient was given aspirin by EMS. I gave her Zofran for nausea. I will give her K-Dur for the low potassium. I feel that her chest pain is likely musculoskeletal as it is on the right side and reproducible with palpation and worse with bending over. No evidence of pericarditis on the EKG. I feel she can be discharged home to use NSAIDs. She will follow-up with her PCP for recheck of her potassium. Treatment Plan: [] Disposition: Discharge Impression: Chest pain, hypokalemia This note was generated with [employer] dictation software. It may contain incorrect words, spelling, and punctuation that were not noted in review of the chart prior to signing ED Disposition - Plan for ED Patient: Chief Complaint: Chest Pain Referrals: Daly Page [Primary Care Provider] - What to do if you have Problems For any increased pain, shortness of breath, bleeding, nausea or vomiting, chest pain, or any unexpected problems, contact your Primary Care Provider. Call [facility] ([phone]) or report to the closest Emergency Room. Call 911 if necessary. 04/17/18 1250 <Electronically signed by Jasbir Qiu MD> Date Jasbir Qiu MD Cosigner Signature (If Indicated): Date CC: Daly Page DISCHARGE INSTRUCTION Observed: 04/17/2018 Status: F Source: [facility] 12:51 PM [facility] REPOSITORY [facility] Medical Records Department [address] [facility] [place] [address] Discharge Instruction 04/17/181250 MR#: [id number] Acct: [id number] Name: VENUS CAMPBELL Rep #: [id number] : 1955 63 From: Jasbir Qiu MD PCP: Daly Page Status: REG ER ED Disposition - Plan for ED Patient: Disposition: Home or Assisted Living Chief Complaint: Chest Pain Instructions: ED Chest Pain Atypical Unkn Cause Referrals: Daly Page [Primary Care Provider] - What to do if you have Problems For any increased pain, shortness of breath, bleeding, nausea or vomiting, chest pain, or any unexpected problems, contact your Primary Care Provider. Call [facility] ([phone]) or report to the closest Emergency Room. Call 911 if necessary. 04/17/18 1251 <Electronically signed by Jasbir Qiu MD> Date Jasbir Rebolledo Signature (If Indicated): Date CC: Daly Page BASIC METABOLIC Collected: 04/17/2018 Status: F Source: [facility] PROFILE (BMP) 12:15 PM [facility] REPOSITORY Order Comment: REDRAW. PREVIOUS SPECIMEN REJECTED DUE TO HEMOLYSIS. 04/17/18 Izabel7 Sandra Deleon. 'TROP' Serial specimen #1, #2, #3, or #4: 1 TYPE CODE TESTS RESULT OUT OF RANGE REFERENCE UNITS LAB L501.0100 74-106 mg/dL Low GLU 61 Result Comment: Please note revised GLUCOSE reference range effective 2017. LAB L501.1000 7-18 mg/dL Normal BUN 15 LAB L501.1100 0.55-1.02 mg/dL Low CREAT,SERUM 0.53 Result Comment: The validity of the calculated GFR AND GFRAA in patients over 70 years has not been determined. Clinical correlation is essential. LAB L501.1110 >60 mL/min Normal EST GFR 123 Result Comment: Non- GFR Calc LAB L501.1115 >60 mL/min Normal EST GFR - AA 149 Result Comment: GFR Calc LAB L501.1255 ml/min Normal Estimated CRCL 107.03 LAB L501.1300 10-20 RATIO High BUN/CRE 28.1 LAB L501.2200 8.5-10 mg/dL .1 CA Normal 8.8 LAB L501.5300 136-14 mmol/L 5 NA Normal 140 LAB L501.5600 3.5-5. mmol/L Low 1 K 2.9 LAB L501.5900 98-107 mmol/L CL Normal 105 LAB L501.6100 21.0-3 mmol/L 2.0 CO2 Normal 26.0 LAB L501.6200 5-15 GAP Normal 9 Performed By: #### L500.2500, L501.4010 #### [facility] [address] [place], [place], [address] TROPONIN-I Collected: 04/17/2018 Status: F Source: [facility]IKA 12:15 PM [facility] REPOSITORY Order Comment: REDRAW. PREVIOUS SPECIMEN REJECTED DUE TO HEMOLYSIS. 04/17/18 1147 Sandra Deleon. 'TROP' Serial specimen #1, #2, #3, or #4: 1 TYPE CODE TESTS RESULT OUT OF RANGE REFERENCE UNITS LAB L501.4010 <0.045 ng/mL Normal 0.018 TROPONIN-I Result Comment: TROPONIN-I EXPECTED VALUES <0.045 Negative 0.045 - 0.590 Consistent with Cardiac Damage > OR = 0.600 Critical Value Not every elevated troponin is indicative of [place]. These values should be used with clinical judgement in examining the patient's clinical picture for diagnosis. To establish a diagnosis of [place] versus myocardial injury, there must be a demonstrated rise and/or fall in the troponin values, in addition to ischemic symptoms, EKG changes, new regional wall motion abnormality, and/or angiographical evidence. PLEASE NOTE: REFERENCE RANGES EDITED 17 Performed By: #### L500.2500, L501.4010 #### [facility] [address] [place], [address] CBC W/DIFF, AUTOMATED Collected: 04/17/2018 Status: F Source: [place] 11:33 AM [facility] REPOSITORY TYPE CODE TESTS RESULT OUT OF RANGE REFERENCE UNITS LAB L100.1000 4.4-11.0 K/mm3 Low WBC 4.0 LAB L100.1200 4.2-5.4 M/mm3 Normal RBC 4.98 LAB L100.1300 12.0-15.0 g/dl Normal HGB 14.5 LAB L100.1400 37-47 % Normal HCT 41.8 LAB L100.1500 81-99 fL Normal MCV 83.9 LAB L100.1600 27.0-32.0 pg Normal MCH 29.1 LAB L100.1700 32-36 g/gl Normal MCHC 34.7 LAB L100.1810 11.6-14.6 % Normal RDW CV 13.5 LAB L100.1820 35.1-43.9 fl Normal RDW SD 40.9 LAB L100.1900 150-450 K/mm3 Normal PLT 217 LAB L100.2000 6.2-12.0 fl Normal MPV 9.4 LAB L100.2100 47-70 % Normal NEUT% 53.7 LAB L100.2200 19-41 % Normal LY% 35.7 LAB L100.2300 0-10 % Normal MONO% 6.7 LAB L100.2400 0-5 % Normal EO% 1.7 LAB L100.2500 0-1 % High BASO% 1.7 LAB L100.2550 0.0-0.9 % Normal IM GRAN % 0.500 Result Comment: IG% - Immature Granulocytes (promyelocytes, myelocytes and metamyelocytes) > 1% indicates that a LEFT SHIFT is Present. LAB L100.2620 2.0-7.7 X10 3/uL Normal Absolute Neut 2.2 LAB L100.2720 0.83-4.51 X10 3/ul Normal Absolute Lymph 1.43 Performed By: #### L100.0100 #### [facility] [address], [address] CHEST 1 VIEW Observed: 04/17/2018 Status: F Source: [place] (PORTABLE) 11:33 AM [facility] REPOSITORY [facility] Imaging Services [address] [place] [address] Chest 1 View (Portable) MR#: [id number] Acct: [id number] Name: VENUS CAMPBELL Erika Rep #: [id number] : 1955 F 63 From: Bonifacio Wiseman MD PCP: Daly Page Status: REG ER Study: Chest 1 View (Portable) Date of Exam: 04/17/18 Exam# [id number] Ordering Dr: Jasbir Qiu MD STUDY: X-RAY CHEST REASON FOR EXAM: Female, 63 years old. Chest pain. TECHNIQUE: Single AP portable view of the chest. COMPARISON: Comparison is made with prior study dated July 24, 2017. FINDINGS: EKG electrodes are seen. Mild increased linear markings at the right lung base suggestive of a linear atelectasis and/or scarring. Focal linear increased markings at left lung base suggestive of scarring and/or atelectasis. There is no demonstrated pleural abnormality. Normal size heart. Normal mediastinum and robin. Normal visualized pulmonary arteries. There is atherosclerotic tortuosity of the aortic arch and descending thoracic aorta. There are degenerative changes of the visualized thoracic spine. Normal visualized ribs, clavicles, and shoulders. There is no demonstrated abnormality of the visualized soft tissue structures of the upper abdomen. RAD/Chest 1 View (Portable) IMPRESSION: Stable mild increased markings at the lung bases suggestive scarring. Electronically Signed: Bonifacio Wiseman MD at 12:16 EST Tel [phone], Service support , CC: Jasbir Qiu MD; Daly Page Assistant Program Director: Signed LOWER EXT ARTERIAL Observed: 01/25/2018 Status: F Source: [facility] 7:10 PM [facility] REPOSITORY [facility] Cardiovascular Services [address] [place] [address] 01/25/18 1905 MR#: [id number] Acct: [id number] Name: VENUS CAMPBELL Rep #: [id number] : 1955 62 From: Michael Mendez MD Attending Dr: Silvestre Rodgers DPM Status: REG CLI Ordering Dr: Date: 01/25/18 Location: [facility] Sex: F C Admitted: Arterial Study - Arterial Study Arterial Study: This is a 62-year-old female who presents with a history of hypertension, diabetes mellitus, and congestive heart failure. She has a history of peripheral arterial occlusive disease, and is brought to the noninvasive vascular laboratory at this time for the purpose of bilateral noninvasive lower extremity arterial assessment. Doppler signal assessment was used to evaluate the pulses at ankle level bilaterally. The posterior tibial and dorsalis pedis pulses were triphasic bilaterally. Segmental limb pressures were obtained bilaterally. The right ankle pressure, as determined by posterior tibial pulse, was measured at 152 mmHg. The right ankle pressure, as determined by dorsalis pedis pulse, was measured at 139 mmHg. The right digital pressure was measured at 106 mmHg. The left ankle pressure, as determined by posterior tibial pulse, was measured at 155 mmHg. The left ankle pressure, as determined by dorsalis pedis pulse, was measured at 138 mmHg. The left digital pressure was measured at 118 mmHg. Pulse volume recordings were obtained bilaterally and segmentally. Waveform amplitudes appeared to be satisfactory at all levels bilaterally, including low thigh, calf, ankle, and digital levels. Resting ankle brachial indices were calculated bilaterally. The resting right ankle brachial index was calculated to be 1.29. The resting left ankle brachial index was calculated to be 1.31. Digital brachial indices were calculated bilaterally. The right digital-brachial index was calculated to be 0.90. The left digital-brachial index was calculated to be 1.00. Impression: Based upon the findings of this resting noninvasive lower extremity study, there is no evidence of significant atherosclerotic peripheral arterial occlusive disease in the lower extremities bilaterally. Triphasic waveforms were noted at ankle level bilaterally. Resting ankle brachial indices were bilaterally normal. Digital-brachial indices were also normal bilaterally. In summary, this represents a normal resting noninvasive lower extremity arterial study bilaterally 01/25/181909 <Electronically signed by Michael Mendez MD> Date Michael Mendez MD CC: Silvestre HAINESM; DALY PAGE Date Dictated: 01/25/181904 Date Transcribed: 01/25/181904 Assistant Program Director: KENY Oliva DORSAL SPINE 2 Observed: 11/21/2017 Status: F Source: [facility] VIEWS 1:01 PM [place] [address] Patient: VENUS CAMPBELL Phone#: : [phone] Age: 62 Gender: F Pt. Type: Out Account: [id number] Location: [facility] Ordering: JAI BATISTA Exam Date: 11/21/2017/12:38 Family Phys: DALY PAGE Charge Code: [id number] Physician: [place] Order #: [id number] [facility] Dose#: PROCEDURE: X-RAY DORSAL SPINE 2 VIEWS COMPARISON: None. INDICATIONS: Back pain FINDINGS: BONES: Limited evaluation of the upper thoracic spine due 2 overlapping structures. No appreciable vertebral body height loss in the upper thoracic spine. The remaining thoracic vertebral bodies are maintained in height. There are degenerative osteophyte formation. DISC SPACES: Mild disc height loss the mid thoracic spine. PARASPINOUS: Negative. No paraspinous abnormality is seen. OTHER: Negative. CONCLUSION: 1. Degenerative changes of the thoracic spine. Dictated by: Kimberley Payton MD on 11/21/2017 at 17:41 Approved by: Kimberley Payton MD on 11/21/2017 at 17:41 LUMBO SACRAL COMPLETE Observed: 11/21/2017 Status: F [facility] 1:01 PM [facility] REPOSITORY [place] [address] Patient: VENUS CAMPBELL Phone#: : [phone] Age: 62 Gender: F Pt. Type: Out Account: [id number] Location: [facility] Ordering: JAI BATISTA Exam Date: 11/21/2017/12:38 Family Phys: DALY PAGE Charge Code: [id number] Physician: [place] Order #: [id number] DLP Dose#: PROCEDURE: X-RAY LUMBAR SPINE COMPLETE MIN 4 VIEWS COMPARISON: [facility], XR, LUMBAR SPINE COMPLETE, 08/16/2015, 10:04. INDICATIONS: Back pain FINDINGS: BONES: There is facet arthropathy in the lower lumbar spine No significant spondylosis, scoliosis, fracture, or visible bony lesion. The vertebral bodies are maintained in height and alignment. There is diffuse bony demineralization. DISC SPACES: There is disc height loss at L5-S1 with vacuum disc phenomenon. PARASPINOUS: Negative. No paraspinous abnormality is seen. OTHER: Large degree of stool throughout the colon, consistent with constipation. Surgical clips are present in the right upper quadrant. CONCLUSION: 1. Degenerative changes of the spine. 2. Constipation. Dictated by: Kimberley Payton MD on 11/21/2017 at 17:43 Approved by: Kimberley Payton MD on 11/21/2017 at 17:43 CMP WITH EGFR Collected: 10/22/2017 Status: F Source: [facility] 3:30 PM [facility] REPOSITORY TYPE CODE TESTS RESULT OUT OF RANGE REFERENCE UNITS LAB CMP with eGFR(LOINC) CMP with eGFR Result Comment: COMPREHENSIVE METABOLIC PANEL LAB SODIUM(LOINC) 136 - 145 mmol/l SODIUM 138 LAB POTASSIUM(LOINC) 3.5 - 5.1 mmol/L POTASSIUM 4.2 LAB CHLORIDE(LOINC) 98 - 107 mmol/L CHLORIDE 101 LAB CO2(LOINC) 21.0 - mmol/L 31.0 CO2 29.1 LAB GLUCOSE(LOINC) 74 - 106 mg/dl GLUCOSE High 168 LAB BUN(LOINC) 6 - 20 mg/dl BUN High 22 LAB CREATININE(LOINC) 0.6 - 1.2 mg/dl CREATININE 0.7 LAB AST/SGOT(LOINC) 13 - 39 U/L AST/SGOT Low 8 LAB ALK PHOS(LOINC) 38 - 126 U/L ALK PHOS 71 LAB CALCIUM(LOINC) 8.6 - mg/dl 10.2 CALCIUM 9.0 LAB TOTAL 6.4 - 8.3 g/dl PROTEIN(LOINC) TOTAL PROTEIN 6.8 LAB ALBUMIN(LOINC) 3.4 - 4.8 g/dL ALBUMIN 3.5 LAB GLOBULIN(LOINC) 1.5 - 3.8 G/DL GLOBULIN 3.3 LAB A/G RATIO(LOINC) 0.9 - 1.6 A/G RATIO 1.1 LAB TOTAL BILI(LOINC) 0.0 - 1.5 mg/dl TOTAL BILI 0.4 LAB B/C RATIO(LOINC) 0 - 30 ratio B/C High RATIO 31 LAB ALT/SGPT(LOINC) 8 - 35 U/L ALT/SGPT Low 7 LAB ANION GAP(LOINC) 10 - 20 mmol/L ANION GAP 12 LAB AGE(LOINC) years AGE 62 LAB eGFR(LOINC) 60 - 999 ML/MINUTE eGFR >60 LAB eGFR(AA)(LOINC) 60 - 999 ML/MINUTE eGFR(AA) >60 Result Comment: ACCORDING TO THE NATIONAL KIDNEY DISEASE EDUCATION PROGRAM(NKDE), A NORMAL eGFR IS A VALUE GREATER THAN OR EQUAL TO 60 ML/MIN/1.73 SQ METERS. CHRONIC KIDNEY DISEASE: <60mL/MIN/1.73 SQ METERS KIDNEY FAILURE: <15mL/MIN/1.73 SQ METERS THIS TEST SHOULD ONLY BE USED FOR PATIENTS 18 YEARS OF AGE AND OLDER. Performed By: #### [id number] #### [facility],[address] [place] [address] HGB A1C Collected: 10/22/2017 Status: F Source: [facility] 3:30 PM [facility] REPOSITORY TYPE CODE TESTS RESULT OUT OF RANGE REFERENCE UNITS LAB HGB 4.4 - 6.4 % A1C(LOINC) High HGB A1C 13.0 Result Comment: {HB] {A1] Performed By: #### [id number] #### [facility],[address] [place] [address] CBC Collected: 09/16/2017 Status: F Source: [facility] 11:23 AM [facility] REPOSITORY TYPE CODE TESTS RESULT OUT OF RANGE REFERENCE UNITS LAB CBC(INC) CBC Result Comment: CBC-COMPLETE BLOOD COUNT LAB WBC(INC) 4.5 - 10.8 x 10EE3/UL WBC 4.8 LAB RBC(INC) 4.10 - x 10EE6/UL 5.30 RBC High 5.40 LAB HEMOGLOBIN(LOINC 12.0 - g/dl ) 16.0 HEMOGLOBIN 15.9 LAB HEMATOCRIT(INC 34.0 - % ) 46.0 HEMATOCRIT 45.8 LAB MCV(INC) 80 - 99 fl MCV 85 LAB MCH(LOINC) 27 - 33 pg MCH 29 LAB MCHC(LOINC) 32 - 36 X10 3 MCHC 35 LAB RDW/CV(LOINC) 12.0 - % 15.6 RDW/CV 14.2 LAB PLATELET(LOINC) 150 - 450 x10EE3/UL PLATELET 214 LAB MPV(LOINC) 6.6 - 10.5 fl MPV 7.6 Result Comment: AUTOMATED DIFFERENTIAL LAB NEUT %(INC) 46.0 - 76.0 % NEUT % 64.8 LAB LYMPH %(LOINC) 20.0 - 45.0 % LYMPH % 25.0 LAB MONOS %(LOINC) 0.0 - 10.0 % MONOS % 7.0 LAB EO %(LOINC) 0.0 - 7.0 % EO % 1.3 LAB BASO %(LOINC) 0.0 - 2.0 % BASO % 1.9 LAB Lymph #(LOINC) 0.80 - 2.80 x10EE3/U L Lymph # 1.20 LAB Neut #(LOINC) 1.50 - 7.10 x10EE3/U L Neut # 3.10 LAB [place] #(LOINC) 0.20 - 1.00 x10EE3/U L [place] # 0.30 LAB EO #(LOINC) 0.00 - 0.50 x10EE3/U L EO # 0.10 LAB Baso #(LOINC) 0.00 - 0.10 x10EE3/U L Baso # 0.10 LAB MANUAL DIFF(LOINC) MANUAL DIFF N/A LAB MORPHOLOGY(LOINC ) MORPHOLOGY N/A Result Comment: {CD] Performed By: #### [id number] #### [place] [address] LIPID PROFILE Collected: 09/16/2017 Status: F Source: [facility] 11:23 [facility] REPOSITORY TYPE CODE TESTS RESULT OUT OF REFERENCE UNITS RANGE LAB LIPID PROFILE(LOIN C) LIPID PROFILE Result Comment: LIPID PROFILE LAB TRIGLYCERIDE(LOINC) 0 - 150 mg/dl TRIGLYCERIDE 96 LAB CHOLESTEROL(LOINC) 0 - 200 mg/dl CHOLESTEROL High 209 LAB HDL(LOINC) 40 - 60 mg/dl HDL High 71 LAB CHOL/HDL(LOINC) 0.0 - 5.0 CHOL/HDL 2.9 LAB LDL(LOINC) 0 - 129 mg/dl LDL 119 Performed By: #### [id number] #### [place] [address] CMP WITH EGFR Collected: 09/16/2017 Status: F Source: [facility] 11:23 [facility] REPOSITORY TYPE CODE TESTS RESULT OUT OF RANGE REFERENCE UNITS LAB CMP with eGFR(LOINC) CMP with eGFR Result Comment: COMPREHENSIVE METABOLIC PANEL LAB SODIUM(LOINC) 136 - 145 mmol/l SODIUM Low 130 LAB POTASSIUM(LOINC) 3.5 - 5.1 mmol/L POTASSIUM 3.9 LAB CHLORIDE(LOINC) 98 - 107 mmol/L CHLORIDE 102 LAB CO2(LOINC) 21.0 - mmol/L 31.0 CO2 23.3 LAB GLUCOSE(LOINC) 74 - 106 mg/dl GLUCOSE High 265 LAB BUN(LOINC) 6 - 20 mg/dl BUN 15 LAB CREATININE(LOINC) 0.6 - 1.2 mg/dl CREATININE 0.6 LAB AST/SGOT(LOINC) 13 - 39 U/L AST/SGOT Low 10 LAB ALK PHOS(LOINC) 38 - 126 U/L ALK PHOS 82 LAB CALCIUM(LOINC) 8.6 - mg/dl 10.2 CALCIUM 9.5 LAB TOTAL 6.4 - 8.3 g/dl PROTEIN(LOINC) TOTAL PROTEIN 7.6 LAB ALBUMIN(LOINC) 3.4 - 4.8 g/dL ALBUMIN 3.8 LAB GLOBULIN(LOINC) 1.5 - 3.8 G/DL GLOBULIN 3.8 LAB A/G RATIO(LOINC) 0.9 - 1.6 A/G RATIO 1.0 LAB TOTAL BILI(LOINC) 0.0 - 1.5 mg/dl TOTAL BILI 0.6 LAB B/C RATIO(LOINC) 0 - 30 ratio B/C RATIO 25 LAB ALT/SGPT(LOINC) 8 - 35 U/L ALT/SGPT 8 LAB ANION GAP(LOINC) 10 - 20 mmol/L ANION Low GAP 9 LAB AGE(LOINC) years AGE 62 LAB eGFR(LOINC) 60 - 999 ML/MINUTE eGFR >60 LAB eGFR(AA)(LOINC) 60 - 999 ML/MINUTE eGFR(AA) >60 Result Comment: ACCORDING TO THE NATIONAL KIDNEY DISEASE EDUCATION PROGRAM(NKDE), A NORMAL eGFR IS A VALUE GREATER THAN OR EQUAL TO 60 ML/MIN/1.73 SQ METERS. CHRONIC KIDNEY DISEASE: <60mL/MIN/1.73 SQ METERS KIDNEY FAILURE: <15mL/MIN/1.73 SQ METERS THIS TEST SHOULD ONLY BE USED FOR PATIENTS 18 YEARS OF AGE AND OLDER. Performed By: #### [id number] #### [place] [address] MAMM DIGITAL BILAT Observed: 09/16/2017 Status: F Source: [facility] SCREEN 11:18 AM [place] [address] Patient: VENUS CAMPBELL Phone#: : [phone] Age: 62 Gender: F Pt. Type: Out Account: [id number] Location: [facility] Ordering: JAI BATISTA Exam Date: 09/16/2017/11:21 Family Phys: DALY PAGE Charge Code: [id number] Physician: [place] Order #: [id number] DLP Dose#: PROCEDURE: MAMM BILAT DIGITAL SCREENING WITH CAD COMPARISON: [facility], BILAT SCREENING, 09/02/2015, 10:42. [facility], BILAT SCREENING, 09/06/2016, 11:16. INDICATIONS: Screening BREAST COMPOSITION: Heterogeneously dense, which could obscure small masses (51-75% glandular). FINDINGS: DIAGNOSTIC CATEGORY 1--NEGATIVE ASSESSMENT. RIGHT BREAST: No significant suspicious finding. No significant change has occurred. LEFT BREAST: No significant suspicious finding. No significant change has occurred. RECOMMENDATIONS: ROUTINE MAMMOGRAM AND CLINICAL EVALUATION. PLEASE NOTE: A NORMAL MAMMOGRAM DOES NOT EXCLUDE THE POSSIBILITY OF BREAST CANCER. A CLINICALLY SUSPICIOUS PALPABLE LUMP SHOULD BE BIOPSIED. THIS FACILITY UTILIZES A REMINDER SYSTEM TO ENSURE THAT ALL PATIENTS RECEIVE REMINDER LETTERS FOR APPOINTMENTS. THIS INCLUDES REMINDERS FOR ROUTINE MAMMOGRAMS, DIAGNOSITC MAMMOGRAMS, OR OTHER BREAST IMAGING INTERVENTIONS WHEN APPROPRIATE. THIS PATIENT WILL BE PLACED IN THE APPROPRIATE REMINDER SYSTEM. Dictated by: Dee Raymond MD on 09/16/2017 at 11:44 Approved by: Dee Raymond MD on 09/16/2017 at 11:44 12 LEAD ELECTROCARDIOGRAM Observed: 07/29/2017 Status: F Source: [facility] 3:47 PM [facility] RE[facility]IT[facility] [address] [place] [address] 12 Lead EKG 07/25/17 0458 MR#: [id number] Acct: [id number] Name: VENUS CAMPBELL Rep #: [id number] : 1955 62 From: Jamal Tavarez MD Attending Dr: Milagros Oliveros MD Status: DIS OLINDA Ordering Dr: Guillermo Kelly MD Date: 07/25/17 Location: [facility] Sex: F C Admitted: 07/24/17 Test Reason : AM EKG Blood Pressure : / mmHG Vent. Rate : 060 BPM Atrial Rate : 060 BPM P-R Int : 172 ms QRS Dur : 096 ms QT Int : 448 ms P-R-T Axes : 041 -50 038 degrees QTc Int : 448 ms Normal sinus rhythm Low voltage QRS Left anterior fascicular block Abnormal ECG When compared with ECG of 15-DEC-2016 13:05, Vent. rate has decreased BY 30 BPM Nonspecific T wave abnormality no longer evident in Anterior leads QT has shortened Confirmed by JAMAL TAVAREZ MD ([id number]), editorial assistant ABRAM GRANADO ([id number]) on 07/29/2017 3:46:54 PM Referred By: WILBERTO Confirmed By:JAMAL TAVAREZ MD 07/29/17 1546 Date Jamal Tavarez MD CC: Milagros Oliveros MD; Guillermo Kelly MD; DALY PAGE Signed 12 LEAD ELECTROCARDIOGRAM Observed: 07/27/2017 Status: F Source: [facility] 6:08 PM [facility] [address] [place] [address] 12 Lead EKG 07/24/172116 MR#: [id number] Acct: [id number] Name: VENUS CAMPBELL Rep #: [id number] : 1955 62 From: Jamal Tavarez MD Attending Dr: Milagros Oliveros MD Status: DIS OLINDA Ordering Dr: Marlo Terry MD Date: 07/24/17 Location: [facility] Sex: F C Admitted: 07/24/17 Test Reason : CP Blood Pressure : / mmHG Vent. Rate : 084 BPM Atrial Rate : 084 BPM P-R Int : 132 ms QRS Dur : 090 ms QT Int : 364 ms P-R-T Axes : -05 -41 023 degrees QTc Int : 430 ms Normal sinus rhythm Left axis deviation Abnormal ECG Confirmed by JAMAL TAVAREZ MD ([id number]), editorial assistant ABRAM GRANADO ([id number]) on 07/26/2017 2:37:36 PM Referred By: DIEGO Confirmed By:JAMAL TAVAREZ MD 07/26/17 1437 Date Jamal Tavarez MD CC: Milagros Oliveros MD; Marlo Terry MD; DALY PAGE Signed DISCHARGE SUMMARY Observed: 07/27/2017 Status: F Source: [place] 8:54 AM [facility] RE[facility] Medical Records Department [address] [place] [address] Discharge Summary 07/25/17 1314 MR#: [id number] Acct: [id number] Name: VENUS CAMPBELL Rep #: [id number] : 1955 62 From: Milagros Oliveros MD PCP: DALY PAGE Status: DIS OLINDA Y Location: [place] [address] Discharge Date and Diagnosis Date of Admission: 07/24/17 Date of Discharge: 07/25/17 - Primary Discharge Diagnosis Active and Suspected Problems CHF (congestive heart failure) (Acute) Atypical chest pain (Acute) - Secondary Discharge Diagnosis Chronic Problems Hypertension (Chronic) Chronic back pain (Chronic) Diabetes mellitus (Chronic) Hospital Course and Treatment Imaging Results: 07/25/17 05:55 Echo Complete [ECHO] AM (NON MEDS) Nuclear Stress Test - Chemical [NM] Routine Summary of Care Provided: This is a 62 year old F with history of congestive heart failure with no medical record here, she follows transit worker in [facility] came to ED with sudden onset of chest pain , she ruled out acute coronary syndrome with negative cardiac enzymes and then underwent a stress and that was negative for ischemia. The patient was discharged home in stable condition symptom-free. She was recommended to follow-up with her primary care physician and her transit worker. Exam of the time of discharge; vital signs were stable. He was alert and oriented to time place and person. He did not appear to be any form of distress. S1 and S2 heard no murmur or gallop Lung exam was clear to auscultation with no adventitious sounds. Abdomen was soft nontender with normal bowel sounds. extremity exam did not reveal any edema, palpable pulses bilaterally. Neurologic exam was grossly intact. Discharge Activity: Return to Normal Activity Home Medications: Medications to take at Discharge Aspirin [Aspirin, Baby] 81 mg PO DAILY@0800 07/11/15 Carvedilol [Coreg (Beta Cata)] 12.5 mg PO BID 07/12/15 Cyclobenzaprine [Flexeril] 10 mg PO TID PRN PRN 07/12/15 Famotidine [Pepcid] 20 mg PO BID 07/12/15 Lisinopril [Zestril] 5 mg PO DAILY 07/12/15 Metformin HCl [Glucophage] 1,000 mg PO BIDCM 07/12/15 traMADol [Ultram] 50 mg PO Q6H PRN PRN 07/12/15 Ondansetron [Zofran Odt] 8 mg PO Q8H PRN PRN #10 tab 04/30/16 Atorvastatin Calcium [Lipitor] 40 mg PO DAILY 05/21/16 Latanoprost 0.005% [Xalatan Opthalmic] 1 drop EACH EYE BREAKFAST 05/21/16 Insulin Aspart [Novolog Flexpen] 0 units SC 4X/DAY 12/15/16 Insulin Detemir [Levemir FlexPen] 80 units SC BREAKFAST 12/15/16 Insulin Detemir [Levemir FlexPen] 40 units SC DINNER 07/24/17 Paroxetine [Paxil] 40 mg PO DAILY 07/25/17 Timolol 0.5% [Timoptic] 1 drop EACH EYE BID 07/25/17 Primary Care Physician: Daly Page [Primary Care Provider] - In 1 Week Patient Instructions: ED Chest Pain NonCardiac Medical Necessity - Tobacco Use Smoking Status: Never smoker Meaningful Use Info Meaningful Use Diagnoses (Choose all that apply): None applicable 07/27/17 0854 <Electronically signed by Milagros Oliveros MD> Date Milagros Oliveros MD Cosigner Signature (if applicable): Date CC: Milagros Oliveros MD; DALY PAGE Signed DISCHARGE INSTRUCTION Observed: 07/25/2017 Status: F Source: [place] 1:14 PM [facility] Medical Records Department [address] [place] [address] Instructions for Home/Discharge Instructions 07/25/17 1312 MR#: [id number] Acct: [id number] Name: VENUS CAMPBELL Rep #: [id number] : 1955 62 From: Milagros Oliveros MD PCP: DALY PAGE Status: ADM OLINDA - Discharge Diagnoses Current Active Problems: Current Active and Chronic Problems CHF (congestive heart failure) (Acute) Atypical chest pain (Acute) You will use the following diet at home:: Cardiac Discharge Activity: Return to Normal Activity Instructions: ED Chest Pain NonCardiac Allergies/Adverse Reactions: Allergies acetaminophen [From Darvocet-N] Allergy (Verified 07/24/17 21:20) Unknown ferrous gluconate Allergy (Verified 07/24/17 21:20) Unknown propoxyphene [From Darvocet-N] Allergy (Verified 07/24/17 21:20) Unknown Sulfa (Sulfonamide Antibiotics) Allergy (Verified 07/24/17 21:20) Other fluoxetine [From Prozac] Adverse Reaction (Verified 07/24/17 21:20) Other Medications to take at Discharge Aspirin [Aspirin, Baby] 81 mg PO DAILY@0800 07/11/15 Carvedilol [Coreg (Beta Cata)] 12.5 mg PO BID 07/12/15 Cyclobenzaprine [Flexeril] 10 mg PO TID PRN PRN 07/12/15 Famotidine [Pepcid] 20 mg PO BID 07/12/15 Lisinopril [Zestril] 5 mg PO DAILY 07/12/15 Metformin HCl [Glucophage] 1,000 mg PO BIDCM 07/12/15 traMADol [Ultram] 50 mg PO Q6H PRN PRN 07/12/15 Ondansetron [Zofran Odt] 8 mg PO Q8H PRN PRN #10 tab 04/30/16 Atorvastatin Calcium [Lipitor] 40 mg PO DAILY 05/21/16 Latanoprost 0.005% [Xalatan Opthalmic] 1 drop EACH EYE BREAKFAST 05/21/16 Insulin Aspart [Novolog Flexpen] 0 units SC 4X/DAY 12/15/16 Insulin Detemir [Levemir FlexPen] 80 units SC BREAKFAST 12/15/16 Insulin Detemir [Levemir FlexPen] 40 units SC DINNER 07/24/17 Paroxetine [Paxil] 40 mg PO DAILY 07/25/17 Timolol 0.5% [Timoptic] 1 drop EACH EYE BID 07/25/17 Primary Care Physician: Daly Page [Primary Care Provider] - In 1 Week Proposed Discharge Date: 07/25/17 07/25/17 1314 <Electronically signed by Milagros Oliveros MD> Date Milagros Oliveros MD CC: DALY PAGE TROPONIN-I Collected: 07/25/2017 Status: F Source: [place] 11:44 AM [facility] REPOSITORY Order Comment: 'TROP' Serial specimen #1, #2, #3, or #4: 4 TYPE CODE TESTS RESULT OUT OF RANGE REFERENCE UNITS LAB L501.4010 <0.06 ng/mL Normal < 0.02 TROPONIN-I Result Comment: TROPONIN-I EXPECTED VALUES <0.05 NEGATIVE 0.06 - 0.59 AT RISK OF [place] > OR = 0.60 SUGGEST [place] Performed By: #### L501.4010 #### [facility] [address] [place], [address] BEDSIDE GLUCOSE Collected: 07/25/2017 Status: F Source: [place] 11:11 AM [facility] REPOSIT[facility] TYPE CODE TESTS RESULT OUT OF REFERENCE UNITS RANGE LAB L501.080 70-110 mg/dL High BEDSIDE GLU 253 Result Comment: MANAGEMENT OF PATIENT CARE PER NURSING PROTOCOL Performed By: #### L501.080 #### [facility] Point of Care [address] [place] [address] ECHOCARDIOGRAM COMPLETE Observed: 07/25/2017 Status: F Source: [place] 10:54 AM [facility] Cardi[facility] [address] [place] [address] Echo Complete 07/25/17 0812 MR#: [id number] Acct: [id number] Name: VENUS CAMPBELL Rep #: [id number] : 1955 62 From: Jamal Tavarez MD Attending Dr: Milagros Oliveros MD Status: ADM OLINDA Ordering Dr: Guillermo Kelly MD Date: 07/25/17 Location: [facility] Sex: F C Admitted: 07/24/17 Reason For Study: CHF Procedure This was a 2D Doppler, Color Flow transthoracic echocardiogram. Exam performed in department. Left Ventricle Normal LV size. Left ventricular systolic function is normal. The estimated ejection fraction is 60 %. Transmitral diastolic flow velocities suggest mild (stage 1) diastolic dysfunction (reversed pattern). No regional wall motion abnormalities noted. Right Ventricle Normal RV size. Normal systolic function. Atria Normal left atrium. Normal right atrium. Mitral Valve Normal mitral valve. Trivial mitral valve insufficiency. Tricuspid Valve Normal tricuspid valve. Mild to moderate (1-2+) tricuspid valve insufficiency. Pulmonary artery systolic pressure is 29 mmHg. Aortic Valve Trisinus/trileaflet aortic valve. Mild focal aortic valve calcification. Trivial eccentric aortic valve insufficiency. Pulmonic Valve Normal pulmonic valve. Great Vessels Normal aortic root. The pulmonary artery is normal size. Normal inferior vena cava. Pericardium/Pleural No pericardial effusion. MMode/2D Measurements AND Calculations LVIDd: 4.0 cm IVSd: 1.2 cm LVOT diam: 2.1 cm LVIDs: 2.9 cm LVPWd: 1.1 cm LVOT area: 3.5 cm2 RVDd: 2.8 cm FS: 27.3 % Ao root diam: 3.7 cm LAV(MOD-bp): 50.6 ml EDV(MOD-sp4): 99.1 ml LAV(MOD-bp) Indexed: 27.5 ml/m2 ESV(MOD-sp4): 36.6 ml LAV(MOD-sp2): 58.4 ml EF(MOD-sp4): 63.1 % LAV(MOD-sp4): 34.9 ml SV(MOD-sp4): 62.5 ml LA A4 area: 13.5 cm2 RA A4 area: 13.4 cm2 Doppler Measurements AND Calculations MV E max eris: 63.1 cm/sec Lat Peak E' Eris: 11.6 cm/sec Med Peak E' Eris: 7.9 cm/sec MV A max eris: 84.7 cm/sec E/E' lat: 5.4 E/E' med: 8.0 MV E/A: 0.75 Ao V2 max: 210.1 cm/sec AI max eris: 342.0 cm/sec LV V1 max: 80.4 cm/sec Ao max P.7 mmHg AI max P.8 mmHg LV V1 max P.6 mmHg Ao V2 mean: 143.9 cm/sec AI dec slope: 119.8 cm/sec2 LV V1 mean P.4 mmHg Ao mean P.5 mmHg AI P1/2t: 836.0 msec LV V1 mean: 54.4 cm/sec Ao V2 VTI: 45.3 cm LV V1 VTI: 19.3 cm DEDRICK(I,D): 1.5 cm2 DEDRICK(V,D): 1.3 cm2 SV(LVOT): 66.6 ml TR max eris: 248.9 cm/sec TR max P.8 mmHg Interpretation Summary Normal LV size. Left ventricular systolic function is normal. The estimated ejection fraction is 60 %. Transmitral diastolic flow velocities suggest mild (stage 1) diastolic dysfunction (reversed pattern). Trivial eccentric aortic valve insufficiency. Mild focal aortic valve calcification. Ordering Physician: Guillermo Kelly Referring Physician: DALY PAGE Performed By: Leida Romano, CASSANDRACS, RVT 07/25/17 1054 Date Jamal Tavarez MD CC: Milagros Oliveros MD; Guillermo Kelly MD; DALY PAGE Date Dictated: 07/25/17 0812 Date Transcribed: 07/25/17 1054 Assistant Program Director: Signed STRESS REPORT Observed: 07/25/2017 Status: F Source: [place] 9:55 AM [facility] [address] [place] [address] [place] [address] MR#: [id number] Acct: [id number] Name: ADRIANVENUS Erika Rep #: [id number] : 1955 62 From: Jamal Tavarez MD Primary Care: DALY PAGE Status: ADM OLINDA Ordering Dr: Sex: F C Stress Test Report Pharmacologic myocardial perfusion stress test. 62-year-old lady with a history of chest pain. Stress protocol: Resting EKG demonstrates normal sinus rhythm with a rate of 68 bpm normal intervals and noted resting blood pressure is 114/78 mmHg. 0.4 mg of regadenoson was infused per usual protocol followed by rapid intravenous saline flush injection continuous EKG monitoring was performed. At rest there were no ST or T-wave changes noted suggest abnormal flow reserve at peak infusion no ST or T-wave changes were noted suggest abnormal flow reserve. The maximum heart rate attained was 98 bpm which was 61% of maximum predicted heart rate the maximum workload was 1 metabolic equivalent. No clinical angina was noted. The resting blood pressure is 114/78 with a peak blood pressure 120/70 mmHg. Myocardial perfusion protocol: 11.8 mCi of technetium 99m sestamibi was injected at rest. 0.4 mg regadenoson was infused per usual protocol. At peak infusion 36.0 mCi of technetium 99m sestamibi was injected stress images were obtained stress and rest images were reconstructed and compared in the short axis vertical long and horizontal long axis. Gated images were also obtained. Perfusion SPECT analysis: Review of the stress images demonstrate normal uptake of tracer noted in all areas of the myocardium. The resting images similarly demonstrate normal uptake of tracer noted in all areas of the myocardium. No areas of reversibility are noted suggest ischemia no previous infarct is noted. Gated SPECT analysis: The gated ejection fraction is noted to be 67%. Conclusion: Normal pharmacologic myocardial perfusion stress test. Preserved ejection fraction. 07/25/17954 <Electronically signed by Jamal Tavarez MD> Date Jamal Tavarez MD CC: Milagros Oliveros MD; DALY PAGE Date Dictated: 07/25/17951 Date Transcribed: 07/25/17951 Assistant Program Director: [place] Signed BEDSIDE GLUCOSE Collected: 07/25/2017 Status: F Source: [place] 6:14 AM [facility] TYPE CODE TESTS RESULT OUT OF REFERENCE UNITS RANGE LAB L501.080 70-110 mg/dL High BEDSIDE GLU 224 Result Comment: MANAGEMENT OF PATIENT CARE PER NURSING PROTOCOL Performed By: #### L501.080 #### [facility] Point of Care [address] [place] [address] HISTORY AND PHYSICAL Observed: 07/25/2017 Status: F Source: [place] EXAM 5:59 AM [facility] Medical Records Department [address] [place] [address] History and Physical 07/24/17 2250 MR#: [id number] Acct: [id number] Name: VENUS CAMPBELL Rep #: [id number] : 1955 62 From: Guillermo Kelly MD PCP: DALY PAGE Status: ADM OLINDA Y Location: [place] [address] ADDENDUM by Guillermo Kelly MD on 07/25/17 at 0015 Code Visit Patient is not on diuretic at home. Started on Lasix 40 mg IV daily. 07/25/17 0015 <Electronically signed by Guillermo Kelly MD> Date Guillermo Kelly MD cc: Guillermo Kelly MD; DALY PAGE * Signed Problem List (1) CHF (congestive heart failure) Status: Acute (2) Atypical chest pain Status: Acute (3) Hypertension Status: Chronic (4) Chronic back pain Status: Chronic (5) Sepsis Status: Acute (6) Community acquired pneumonia Status: Resolved (7) Diabetes mellitus Status: Chronic Qualifiers: Diabetes mellitus type: type 2 History of Present Illness Date of Admission: 07/24/17 Chief Complaint: chest pain today The patient is a 62 year old F with history of congestive heart failure with no medical record here, she follows transit worker in [facility] came to ER with sudden onset of chest pain in the evening today. Patient further said chest pain was midsternal, while she was sitting, localized, associated with mild shortness of breath, dizziness, lightheadedness without diaphoresis. Patient has history of congestive heart failure and has bilateral lower extremity swelling. She does not remember any recent cardiac catheter stress test. In ED, her vitals were stable; except pulse ox 94% on 2 L oxygen. Chest x-ray shows right basilar atelectasis. Basic blood work shows high blood sugar 677. Anion gap normal bicarb 25. [] Past Medical History Past Medical History (Chronic Problems): Chronic Problems Hypertension (Chronic) Chronic back pain (Chronic) Diabetes mellitus (Chronic) Allergies acetaminophen [From Darvocet-N] Allergy (Verified 07/24/17 21:20) Unknown ferrous gluconate Allergy (Verified 07/24/17 21:20) Unknown propoxyphene [From Darvocet-N] Allergy (Verified 07/24/17 21:20) Unknown Sulfa (Sulfonamide Antibiotics) Allergy (Verified 07/24/17 21:20) Other fluoxetine [From Prozac] Adverse Reaction (Verified 07/24/17 21:20) Other Home Medications: Ambulatory Orders Medication Instructions Recorded Aspirin [Aspirin, Baby] 81 mg PO DAILY@0800 07/11/15 Surgical History: noncontributory Psychiatric History: No pertinent psych hx Smoking Status: Never smoker - *Family History Maternal History Items: Cancer Paternal History Items: Heart Disease Review of Systems Constitutional: Reports: Weakness. Denies: Chills, Fever, Weight Change HEENT: Denies: Head Aches, Sinus Congestion, Sinus Drainage Cardiovascular: Reports: Chest Pain, Edema. Denies: Palpitations Respiratory: Reports: Shortness of breath upon exertion. Denies: Cough, Shortness of breath at rest, Sputum production Gastrointestinal: Denies: Abdominal Pain, Nausea, Vomiting Genitourinary: Denies: Dysuria Musculoskeletal: Reports: Joint Pain. Denies: Joint Tenderness Skin: Denies: Rash, Wounds Neurological: Denies: Numbness, Tingling, Focal weakness Psychiatric: Denies: Anxiety, Depression, Homicidal Ideations, Suicidal Ideations Hematologic/ Lymphatic: Denies: Easy Bruising, Easy Bleeding VTE Information - Inpt Only VTE Present on Admission: No VTE Mechan Device Prophylaxis: SCD's VTE Pharm Prophylaxis ordered?: Yes Patient Problems: Active and Suspected Problems CHF (congestive heart failure) (Acute) Atypical chest pain (Acute) - Physical Exam General: Alert, Oriented x3, Cooperative HEENT: Atraumatic, PERRLA, EOMI, Normocephalic Neck: Supple, No JVD, Negative Carotid Bruits Lungs: Diminished - In bilateral lung bases, right worse than left, - - chronic dyspnea on exertion. Orthopnea Cardiovascular: Regular rate, No murmurs Abdomen: Bowel Sounds Present, Soft, Non Tender Extremities: No edema, Capillary Refill Less than 3 Seconds Skin: No rashes, No breakdown Musculoskeletal: No Tenderness to Palpation of Joints or Extremities Neurological: Cranial nerves II-XII grossly intact Psych/Mental Status: Normal Affect, Appropriate Vital Signs Temp Pulse Resp BP Pulse Ox 97.7 F L 85 16 132/74 H 92 07/24/17 21:15 07/24/17 22:00 04/29/18 21:15 07/24/17 22:00 07/24/17 21:15 Oxygen Flow Rate (L/min) 2 Oxygen Delivery Method Nasal Cannula Weight: 160 lb Body Mass Index (BMI) 25.0 Finger Stick Blood Glucose 231 Laboratory Tests Past 24 Hrs WBC 4.8 RBC 5.33 Hgb 15.7 H Hct 46.9 MCV 88.0 MCH 29.5 MCHC 33.5 RDW 14.6 RDW Differential 46.6 H Assessment/Plan Active and Suspected Problems CHF (congestive heart failure) (Acute) Atypical chest pain (Acute) The patient is a 62 year old F with history of congestive heart failure with no medical record here, she follows transit worker in [facility] came to ER with sudden onset of chest pain in the evening today. Patient further said chest pain was midsternal, while she was sitting, localized, associated with mild shortness of breath, dizziness, lightheadedness without diaphoresis. Patient has history of congestive heart failure and has bilateral lower extremity swelling. She does not remember any recent cardiac catheter stress test. In ED, her vitals were stable; except pulse ox 94% on 2 L oxygen. Chest x-ray shows right basilar atelectasis. Basic blood work shows high blood sugar 677. Anion gap normal bicarb 25. 1. Atypical chest pain; most probably unstable angina patient denies history of coronary artery disease. Patient is being admitted on PCU. On ACS protocol with serial cardiac enzymes. If patient troponin is negative and does not seem to be in worsening heart failure in the morning can have Lexiscan stress test. 2D echo ordered. 2. History of congestive heart failure, type and etiology unclear. Try to get medical record from the transit worker in [place]. Patient is on Coreg, aspirin, lisinopril and atorvastatin which are continued. 3. Diabetes mellitus type 2 with hyperglycemia: Currently patient has mild hyponatremia secondary to hyperglycemia. On Levemir. Accu-Chek before meals and at bedtime cover with NovoLog sliding scale. 4. Other chronic comorbidities include chronic back pain and history of pneumonia.: Home medication reconciliation done. DVT prophylaxis: On heparin 5000 units subcu changes twice daily and bilateral SCDs Laboratory Results 07/24/17 21:29: WBC 4.8, RBC 5.33, Hgb 15.7 H, Hct 46.9, MCV 88.0, MCH 29.5, MCHC 33.5, RDW 14.6, RDW Differential 46.6 H, Plt Count 174, MPV 9.8, Immature Gran % (Auto) 0.200, Neut % (Auto) 61.7, Lymph % (Auto) 29.5, Don[place]han % (Auto) 6.7, Eos % (Auto) 1.3, Baso % (Auto) 0.6, Absolute Neuts (auto) 3.0, Absolute Lymphs (auto) 1.41, Total Counted Not Reportable 07/24/17 21:29: Sodium 131 L, Potassium 5.0, Chloride 100, Carbon Dioxide 25.0, Anion Gap 6, BUN 18, Creatinine 1.05 H, Estim Creat Clear Calc 54.71, Est GFR (MDRD) Af Amer 69, Est GFR (MDRD) Non-Af 57 L, BUN/Creatinine Ratio 17.1, Glucose 677 H*, Calcium 9.3, Troponin I < 0.02 Clinical Impression(s) from Imaging Studies Chest X-Ray 07/24/17 21:52 IMPRESSION: Right basilar atelectasis without acute alveolar disease. Electronically Signed: Edgardo Hare MD at 22:14 EDT Tel , Service support , Code Visit Inpatient E AND M: [id number] Init Hosp L3 07/25/17 0014 <Electronically signed by Guillermo Kelly MD> Date Guillermo Kelly MD Cosigner Signature: Date (if applicable) CC: Guillermo Kelly MD; DALY PAGE Signed PROTHROMBIN TIME W/INR Collected: 07/25/2017 Status: F Source: ANIKA 5:18 AM [facility] REPOSITORY TYPE CODE TESTS RESULT OUT OF RANGE REFERENCE UNITS LAB L300.4150 11.7-14.9 SECONDS Normal PROTIME 14.1 LAB L300.4200 Normal INR 1.1 Performed By: #### L100.0500, L300.3900, L300.4310 #### [facility] [address] [place], [place], [address] PARTIAL THROMBOPLAST Collected: 07/25/2017 Status: F Source: ANIKA TIME 5:18 AM [facility] REPOSITORY TYPE CODE TESTS RESULT OUT OF REFERENCE UNITS RANGE LAB L300.4310 24.1-36.2 Seconds Low PTT 23.9 Performed By: #### L100.0500, L300.3900, L300.4310 #### [facility] [address] [place], [address] CBC-COMPLETE BLOOD CNT Collected: 07/25/2017 Status: F Source: ANIKA NO DIFF 5:10 AM [facility] REPOSITORY TYPE CODE TESTS RESULT OUT OF RANGE REFERENCE UNITS LAB L100.1000 4.4-11.0 K/mm3 Normal WBC 4.4 LAB L100.1200 4.2-5.4 M/mm3 Normal RBC 4.48 LAB L100.1300 12.0-15.0 g/dl Normal HGB 12.9 LAB L100.1400 37-47 % Normal HCT 38.3 LAB L100.1500 81-99 fL Normal MCV 85.5 LAB L100.1600 27.0-32.0 pg Normal MCH 28.8 LAB L100.1700 32-36 g/gl Normal MCHC 33.7 LAB L100.1810 11.6-14.6 % Normal RDW CV 14.5 LAB L100.1820 35.1-43.9 fl High RDW SD 45.3 LAB L100.1900 150-450 K/mm3 Normal PLT 168 LAB L100.2000 6.2-12.0 fl Normal MPV 9.4 Performed By: #### L100.0500, L300.3900, L300.4310 #### [facility] [address] [place], [address] COMPREHENSIVE METABOLIC Collected: 07/25/2017 Status: F Source: ANIKA PROFIL 5:10 AM [facility] REPOSITORY TYPE CODE TESTS RESULT OUT OF RANGE REFERENCE UNITS LAB L501.0100 74-106 mg/dL High GLU 202 Result Comment: Glucose result greater than or equal to 200 mg/dL suggests DIABETES MELLITUS per A.D.A. criteria. Please note revised GLUCOSE reference range effective 2017. LAB L501.1000 7-18 mg/dL High BUN 23 LAB L501.1100 0.55-1.02 mg/dL Low CREAT,SERUM 0.54 Result Comment: The validity of the calculated GFR AND GFRAA in patients over 70 years has not been determined. Clinical correlation is essential. LAB L501.1110 >60 mL/min Normal EST GFR 121 Result Comment: Non- GFR Calc LAB L501.1115 >60 mL/min Normal EST GFR - AA 147 Result Comment: GFR Calc LAB L501.1255 ml/min Normal Estimated CRCL 106.39 LAB L501.1300 10-20 RATIO High BUN/CRE 42.4 LAB L501.1500 6.4-8. g/dL 2 T PROT Normal 6.5 LAB L501.1800 3.2-5. g/dL Low 0 ALB 2.6 LAB L501.1950 2.2-4. g/dL 2 GLOB Normal 3.9 LAB L501.2000 0.9-2. RATIO Low 4 A/G 0.7 LAB L501.2200 8.5-10 mg/dL .1 CA Normal 9.2 LAB L501.4100 15-37 U/L Low AST 10 LAB L501.4305 45-117 U/L ALK P Normal 93 LAB L501.4405 13-56 U/L Low ALT 11 LAB L501.4600 0.20-1 mg/dL .00 T BILI Normal 0.30 LAB L501.5300 136-14 mmol/L 5 NA Normal 137 LAB L501.5600 3.5-5. mmol/L 1 K Normal 3.5 LAB L501.5900 98-107 mmol/L CL Normal 103 LAB L501.6100 21.0-3 mmol/L 2.0 CO2 Normal 27.0 LAB L501.6200 5-15 GAP Normal 7 Performed By: #### L500.4050, L500.4100, L501.9520 #### [facility] [address] [place], [address] LIPID PROFILE Collected: 07/25/2017 Status: F Source: ANIKA 5:10 AM [facility] REPOSITORY TYPE CODE TESTS RESULT OUT OF RANGE REFERENCE UNITS LAB L501.4900 200 mg/dL Normal CHOL 152 Result Comment: <200 mg/dL Desirable 200-240 mg/dL Borderline >240 mg/dL High Risk LAB L501.5000 mg/dL Normal TRIG 117 Result Comment: The drugs N-Acetylcysteine and Metamizole may falsely depress this assay. Serum Triglycerides Reference Interval Normal <150 mg/dL Borderline high 150 - 199 mg/dL High 200 - 499 mg/dL Very High > or = 500 mg/dL LAB L501.6400 mg/dL Normal HDL 54 Result Comment: The drugs N-Acetylcysteine and Metamizole may falsely depress this assay. Reference Range HDL <40 mg/dL Low HDL Cholesterol HDL >or= 60 mg/dL High HDL Cholesterol LAB L501.6500 0-130 mg/dL Normal LDL 75 LAB L501.6600 5-40 mg/dL Normal VLDL 23 Performed By: #### L500.4050, L500.4100, L501.9520 #### [facility] [address] [place], [address] THYROID STIM HORMONE Collected: 07/25/2017 Status: F Source: ANIKA (TSH) 5:10 AM [facility] REPOSITORY TYPE CODE TESTS RESULT OUT OF RANGE REFERENCE UNITS LAB L501.9520 0.358-3.74 uIU/mL Normal TSH 2.19 Performed By: #### L500.4050, L500.4100, L501.9520 #### [facility] [address] [place], [address] HEMOGLOBIN A1C Collected: 07/25/2017 Status: F Source: ANIKA 5:10 AM [facility] REPOSITORY TYPE CODE TESTS RESULT OUT OF RANGE REFERENCE UNITS LAB L501.9985 4.2-6.3 % High HGB A1C 12.9 Performed By: #### L501.9985 #### [facility] [address] [place], [address] EMERGENCY DEPARTMENT Observed: 07/24/2017 Status: F Source: W[place] SUMMARY 10:33 PM [facility] REPOSITORY [facility] Medical Records Department [address] [place] [address] Emergency Department Summary 07/24/17 2214 MR#: [id number] Acct: [id number] Name: VENUS CAMPBELL Rep #: [id number] : 1955 62 From: Marlo Terry MD PCP: DALY PAGE Status: REG ER - ER Visit Summary Date of Service: 07/24/17 Chief Complaint: Chest discomfort described as someone laying bricks on my chest History of Present Illness: The patient is a 62 F who presents with midsternal chest discomfort that started at 1999 while looking through magazines. She describes it as if someone is laying multiple bricks on her chest. There is associated with nausea, dyspnea without diaphoresis. She has a history of coronary disease, type 1 diabetes, hypertension hypercholesterolemia. She also reports leg swelling does have history of congestive heart failure. She denies known history of coronary disease. She had a stress test because of anxiety. She states that stress test was negative. Patient denies headache, ocular, visual or auditory symptoms. I trouble speech or swallowing. Denies any back pain or extremity pain. She denies any urologic symptoms. She denies any neurologic symptoms. Physical Examination: Patient is a pleasant elderly woman who does not appear in much discomfort. Head is atraumatic normocephalic. Pupils are equal round reactive. Extraocular muscles are intact. TMs are pearly white with landmarks noted. Nares patent with no drainage. Posterior pharynx without erythema or exudate. Uvula is midline. There is no dysphonia or dysphasia. Trachea is midline. There is no stridor with auscultation of the neck. Heart is regular without murmur, gallop or rub. S1 and S2 are normal. Lungs are clear to auscultation with good movement of air bilaterally. There is no reproducible chest pain. Abdomen is soft nontender with no hepatosplenomegaly. Negative Sauceda sign. Bowel sounds are present normal. She does have edema of both right and left lower externally. Skin appears pale. Neuro exam is nonfocal. Test Results: EKG reveals a sinus rhythm with no acute ischemic changes. Two-view portable chest x-ray interpreted by me reveals minimal chronic changes. CBC is unremarkable. Basic metabolic panel is remarkable for glucose of 677 with a normal CO2 and anion gap. There is evidence of pseudohyponatremia with sodium 131. Troponin is less than 0.02. Emergency Department Course and Treatment: Patient was treated with aspirin and 2 nitro prior to presentation. Her pain improved markedly after 2 nitro. She will receive a third nitro and cardiac workup was undertaken. Need to evaluate for cardiac versus pulmonary versus GI etiology. In light of her description associated symptoms and risk factors concerned this is cardiac and will require admission for provocative testing. To treat patient's hyperglycemia she was given a fluid bolus and 15 units of regular insulin subcu. Treatment Plan: Patient will need admission for her hyperglycemia and to evaluate her chest heaviness. Disposition: Admit PCU Impression: 1. Chest pain 2. Hyperglycemia nonketotic, 677 3. History of type 1 diabetes 4. History of hypercholesterolemia 5. History of hypertension 6. History of congestive heart failure This note was generated with Dat[employer] dictation software. It may contain incorrect words, spelling, and punctuation that were not noted in review of the chart prior to signing ED Disposition - Plan for ED Patient: Chief Complaint: Chest Pain Referrals: Daly Page [Primary Care Provider] - What to do if you have Problems For any increased pain, shortness of breath, bleeding, nausea or vomiting, chest pain, or any unexpected problems, contact your Primary Care Provider. Call [facility] ([phone]) or report to the closest Emergency Room. Call 911 if necessary. 07/24/17 2233 <Electronically signed by Marlo Terry MD> Date Marlo Rebolledo Signature (If Indicated): Date CC: DALY PAGE CHEST 1 VIEW Observed: 07/24/2017 Status: F Source: ANIKA (PORTABLE) 9:53 PM [facility] REPOSITORY [facility] Imaging Services [address] [place] [address] Chest 1 View (Portable) MR#: [id number] Acct: [id number] Name: VENUS CAMPBELL Rep #: [id number] : 1955 F 62 From: Edgardo Hare MD PCP: DALY PAGE Status: REG ER Study: Chest 1 View (Portable) Date of Exam: 07/24/17 Exam# [id number] Ordering Dr: Marlo Terry MD STUDY: X-RAY CHEST REASON FOR EXAM: Female, 62 years old. Chest pain TECHNIQUE: Single frontal view of the chest. COMPARISON: None. FINDINGS: Right basilar atelectasis without acute alveolar disease. There is no demonstrated pleural abnormality. Normal size heart. Normal mediastinum and robin. Normal visualized pulmonary arteries. Normal visualized aortic arch and descending thoracic aorta. Normal visualized thoracic spine. Normal visualized ribs, clavicles, and shoulders. There is no demonstrated abnormality of the visualized soft tissue structures of the upper abdomen. RAD/Chest 1 View (Portable) IMPRESSION: Right basilar atelectasis without acute alveolar disease. Electronically Signed: Edgardo Hare MD at 22:14 EDT Tel , Service support , CC: Marlo Terry MD; DALY PAGE Assistant Program Director: Signed CBC W/DIFF, AUTOMATED Collected: 07/24/2017 Status: F Source: WESLEY 9:29 PM [facility] REPOSITORY TYPE CODE TESTS RESULT OUT OF RANGE REFERENCE UNITS LAB L100.1000 4.4-11.0 K/mm3 Normal WBC 4.8 LAB L100.1200 4.2-5.4 M/mm3 Normal RBC 5.33 LAB L100.1300 12.0-15.0 g/dl High HGB 15.7 LAB L100.1400 37-47 % Normal HCT 46.9 LAB L100.1500 81-99 fL Normal MCV 88.0 LAB L100.1600 27.0-32.0 pg Normal MCH 29.5 LAB L100.1700 32-36 g/gl Normal MCHC 33.5 LAB L100.1810 11.6-14.6 % Normal RDW CV 14.6 LAB L100.1820 35.1-43.9 fl High RDW SD 46.6 LAB L100.1900 150-450 K/mm3 Normal PLT 174 LAB L100.2000 6.2-12.0 fl Normal MPV 9.8 LAB L100.2100 47-70 % Normal NEUT% 61.7 LAB L100.2200 19-41 % Normal LY% 29.5 LAB L100.2300 0-10 % Normal MONO% 6.7 LAB L100.2400 0-5 % Normal EO% 1.3 LAB L100.2500 0-1 % Normal BASO% 0.6 LAB L100.2550 0.0-0.9 % Normal IM GRAN % 0.200 Result Comment: IG% - Immature Granulocytes (promyelocytes, myelocytes and metamyelocytes) > 1% indicates that a LEFT SHIFT is Present. LAB L100.2620 2.0-7.7 X10 3/uL Normal Absolute Neut 3.0 LAB L100.2720 0.83-4.51 X10 3/ul Normal Absolute Lymph 1.41 Performed By: #### L100.0100 #### [facility] [address] [place] [address]. [place], [place], [address] BASIC METABOLIC Collected: 07/24/2017 Status: F Source: WESLEY PROFILE (BMP) 9:29 PM [facility] REPOSITORY Order Comment: 'TROP' Serial specimen #1, #2, #3, or #4: 1 TYPE CODE TESTS RESULT OUT OF RANGE REFERENCE UNITS LAB L501.0100 74-106 mg/dL High alert GLU 677 Result Comment: CALLED [facility] MK ED WITH CRITICAL GLUC BY MAF 07-24-17 AT 2229PM READ BACK BY SAME Glucose result greater than or equal to 200 mg/dL suggests DIABETES MELLITUS per A.D.A. criteria. Please note revised GLUCOSE reference range effective 2017. LAB L501.1000 7-18 mg/dL Normal BUN 18 LAB L501.1100 0.55-1.02 mg/dL High CREAT,SERUM 1.05 Result Comment: The validity of the calculated GFR AND GFRAA in patients over 70 years has not been determined. Clinical correlation is essential. LAB L501.1110 >60 mL/min Low EST GFR 57 Result Comment: Non- GFR Calc LAB L501.1115 >60 mL/min Normal EST GFR - AA 69 Result Comment: GFR Calc LAB L501.1255 ml/min Normal Estimated CRCL 54.71 LAB L501.1300 10-20 RATIO Normal BUN/CRE 17.1 LAB L501.2200 8.5-10 mg/dL Normal .1 CA 9.3 LAB L501.5300 136-14 mmol/L Low 5 NA 131 LAB L501.5600 3.5-5. mmol/L Normal 1 K 5.0 LAB L501.5900 98-107 mmol/L Normal CL 100 LAB L501.6100 21.0-3 mmol/L Normal 2.0 CO2 25.0 LAB L501.6200 5-15 Normal GAP 6 Performed By: #### L500.2500, L501.4010 #### [facility] [address] [facility] [facility] [address] TROPONIN-I Collected: 07/24/2017 Status: F Source: WESLEY 9:29 PM [facility] REPOSITORY Order Comment: 'TROP' Serial specimen #1, #2, #3, or #4: 1 TYPE CODE TESTS RESULT OUT OF RANGE REFERENCE UNITS LAB L501.4010 <0.06 ng/mL Normal < 0.02 TROPONIN-I Result Comment: TROPONIN-I EXPECTED VALUES <0.05 NEGATIVE 0.06 - 0.59 AT RISK OF [place] > OR = 0.60 SUGGEST [place] Performed By: #### L500.2500, L501.4010 #### [facility] [address] [facility] [place], [place], [address] MAGNESIUM Collected: 07/24/2017 Status: F Source: W[place]LEY 9:29 PM [facility] REPOSITORY TYPE CODE TESTS RESULT OUT OF RANGE REFERENCE UNITS LAB L501.5200 1.6-2.6 mg/dL Normal MG 1.9 Performed By: #### L501.5200 #### [facility] [address] [place], [address] BNP,B-TYPE NATRIURETIC Collected: 07/24/2017 Status: F Source: ANIKA PEPTIDE 9:29 PM [facility] REPOSITORY TYPE CODE TESTS RESULT OUT OF RANGE REFERENCE UNITS LAB L503.6620 0-100 pg/mL Normal B-TYPE 14.2 SARITHA PEP Performed By: #### L503.6620 #### [facility] [address] [place], [address] ALLERGIES ALLERGIES DATE TYPE / CODE NAME / CODE REACTION SEVERITY SOURCE 04/17/2018 Drug Sulfa Other Unknown [place] Allergy/508991244(S (Sulfonamide [facility] NOMED CT) Antibiotics)/ Hospital L436152347(RX Repository NORM) 04/17/2018 Drug ferrous Unknown Unknown [place] Allergy/245741311(S gluconate/F00 [facility]) 2204240(RXNOR Hospital ) Repository 04/17/2018 Drug propoxyphene/ Unknown Unknown [place] Allergy/390516299(S P598131131(RX [facility]OM[facility]) NORM) Hospital Repository 04/17/2018 Drug acetaminophen Unknown Unknown [place] Allergy/678266800(S /K352337666(R [facility] NOM[facility]) XNORM) Hospital Repository 04/17/2018 Drug fluoxetine/F0 Other Unknown [place] Allergy/711078230(S 50752714(RXNO [facility] NOM[facility]) RM) Hospital Repository Drug SULFA Moderate [place] Allergy/398411993(S (sulfonamide) (Severity [facility] NOMED CT) /09366343(RXN Modifier) Hospital OR) (Qualifier Repository Value) Drug PROPOXYPHENE/ Moderate [place] Allergy/539961737(S 52237704(RXNO (Severity [facility] NOMED CT) RM) Modifier) Hospital (Qualifier Repository Value) Drug IRON/12798937 Moderate [place] Allergy/574722042(S (RXNORM) (Severity [facility] NOMED CT) Modifier) Hospital (Qualifier Repository Value) Drug PROZAC/276833 Moderate [place] Allergy/382990622(S 38(RXNORM) ([facility]ity [facility]) Modifier) Hospital (Qualifier Repository Value) Drug PROPOXY Moderate [place] Allergy/124010827(S NAPS/APAP-100 (Severity [facility]) /31705722(RXN Modifier) Hospital ORM) (Qualifier Repository Value) Drug DARVOCET/DARV Moderate [place] Allergy/495093206(S ON/11671947(R ([facility]everity [facility]) XNORM) Modifier) Hospital (Qualifier Repository Value) Environmental 02/24/17 (+) U [place] Allergy/225191324(S MRSA [facility]) Hospital Repository Environmental 02/28/17 (-) U [place] Allergy/257976636(S MRSA SCREEN [facility]) Hospital Repository ENCOUNTERS ENCOUNTERS ADMIT/DISCHARGE ACCOUNT ADMITTING ENCOUNTER LOCATION SOURCE NUMBER CLASS 04/17/2018/ [id number] Emergency [place] 9 2 [facility] ing:ED Repository 01/25/2018 [id number] Ambulatory [place] 5 [facility] ing:[facility]S Repository 12/01/2017 [id number] DALY PAGE Ambulatory [place] [facility] Repository 11/21/2017/ [id number] L[place], Ambulatory [place] 8 [facility] Repository 10/22/2017/ [id number] DALY PAGE Ambulatory [place] 8 [facility] Repository 10/22/2017/ [id number] DALY PAGE Ambulatory [place] 8 [facility] Repository 09/16/2017/ [id number] ROHIT, Ambulatory [place] [address] [facility] Repository 09/16/2017/ [id number] LYNNE, Ambulatory [place] 8 [facility] Repository 07/25/2017/ [id number] Ambulatory BMSBuilding:Alejandro Donaldson 8 0 [facility] Repository 07/25/2017/ [id number] Ambulatory BMSBuilding:W [place] 8 2 [facility] Repository 07/24/2017/ [id number] [facility], Ambulatory [place] 8 4 [facility] ing:PCURoom: Repository [id number]: 1 07/24/2017 [id number] [facility], Ambulatory BMSBuilding:B [place] 1 [facility] [place] Repository 07/24/2017 [id number] [facility], Ambulatory BMSBuilding:B [place] 4 [facility] Repository PAYERS PAYERS ENCOUNTER GUARANTOR PAYER SUBSCRIBER SOURCE 04/17/2018 RONAK Donaldson Jr.[address] [facility] Insurance:MARIA ANTONIA PENAB: [place] SEN[place] [id number] [address]Pdp: [phone]) ADVANTAPolicy Number: Repository [phone] (HP) [id number] Date:[id number] [address]WW: 04/17/2018 Secondary NOT GIVENUNK [place] Insurance:SELF PAY [facility] Number: Effective Repository Date:2018-04-17 01/25/2018 RONAKELEN Chavarria VENUS James [place] Jr.[address] [facility] Insurance:MARIA ANTONIA RASMUSSEN: [place] [id number] [address]Jhw: [phone] ADVANTAPolicy Number: Repository [phone] (HP) [id number] Date:[id number] [address] [place] [id number]: 01/25/2018 Secondary NOT GIVENUNK [place] Insurance:SELF PAY [facility] Number: Effective Repository Date:2018-01-09 11/21/2017 VENUS James [facility] VENUS RASMUSSEN: Insurance:MARIA ANTONIA RASMUSSEN: [facility] CROSS MEDICARE [id number] [place] [address] Repository [place] Number: [place], [place] [address]Igw: 330) [id number] [phone] (HP) Date:Plan Name: 10/22/2017 VENUS James Primary VENUS Anne LEWISDOB: Insurance:ANTHEM BLUE LEWISDOB: [facility] CROSS MEDICARE [id number] [address] Repository [place] Number: [place] [address]Zcz: (330) [id number] [phone] (HP) Date:Plan Name: 10/22/2017 VENUS James Primary VENUS Anne LEWISDOB: Insurance:ANTHEM BLUE LEWISDOB: [facility] CROSS MEDICARE [id number] [address] [place] Number: [place], [place] [address]Rzl: (330) [id number] [phone] (HP) Date:Plan Name: 09/16/2017 VENUS James Primary VENUS Anne LEWISDOB: Insurance:ANTH BLUE LEWISDOB: [facility] CROSS MEDICARE [id number] [address] [place] Number: [place], [place] [address]Wnh: (330) [id number] [phone] (HP) Date:Plan Name: 09/16/2017 VENUS James Primary VENUS Anne LEWISDOB: Insurance:ANTHEM BLUE LEWISDOB: [facility] CROSS MEDICARE [id number] [address] [place] Number: [place], [place] [address]Tqh: (330) [id number] [phone] (HP) Date:Plan Name: 07/25/2017 RONAK CAMPBELL Primary VENUS James [place] Jr.[address] [facility] Insurance:MARIA ANTONIA PENAB: [place] [id number] Hospital [address]Cgw: (330) ADVANTAPolicy Number: Repository [phone] (HP) [id number] Date:[id number], [place] [address]YZ: 07/25/2017 Secondary NOT GIVENUNK [place] Insurance:SELF PAY [facility] Number: Effective Repository Date:2017-07-25 07/25/2017 RONAK CAMPBELL [facility] VENUS Donaldson Jr.[address] [facility] Insurance:MARIA ANTONIA PENAB: [place]EN[place] [id number] Hospital [address]Kzr: (330) ADVANTAPolicy Number: Repository [phone] (HP) [id number] Date:[id number] [place] [address] [place] [id number]: 07/25/2017 Secondary NOT GIVENUNK Anika Insurance:SELF PAY [facility] Number: Effective Repository Date:2017-07-25 07/24/2017 RONAK CAMPBELL [facility] VENUS [id number] Insurance:MARIA ANTONIA PENAB: [place] SEN[place] [id number] Hospital [address]14[address]Dsv: [phone] [employer] Number: Repository [phone] (HP) [id number] Date:[id number] [place] [address] [place] [address]TL: 07/24/2017 Secondary NOT GIVENUNK [place] Insurance:SELF PAY [facility] Number: Effective Repository Date:2017-07-24 07/24/2017 RONAK CAMPBELL [facility] VENUS Donaldson Jr[id number] Insurance:MARIA ANTONIA PENAB: [place]EN[place] [id number] Hospital [address]Ndd: [phone] ADVANTAPolicy Number: Repository [phone] (HP) [id number] Date:[id number] [place] [address] [place] [address]EA: 07/24/2017 Secondary NOT GIVENUNK Anika Insurance:SELF PAY [facility] Number: Effective Repository Date:2017-07-24 07/24/2017 RONAKELEN Donaldson Jr.[id number] [facility] Insurance:MARIA ANTONIA PENAB: [place] [id number] Hospital [address]Fni: [phone]) ADVANTAPolicy Number: Repository [phone] () [id number] Date:[id number], [place] [address]HL: 07/24/2017 Secondary NOT GIVENUNK Anika Insurance:SELF PAY [facility] Number: Effective Repository Date:2017-07-24
== END 2018-04-17 15:05 | disposition home or self-care (01) ==
PROVIDERS: Emergency Provider Emergency Medicine; Family Provider Internal Medicine Infectious Disease; PCP Internal Medicine Infectious Disease
DX: R07.9 Chest pain, unspecified (principal); E87.6 Hypokalemia; I10 Essential (primary) hypertension; E11.9 Type 2 diabetes mellitus without complications; K21.9 Gastro-esophageal reflux disease without esophagitis; Z79.4 Long term (current) use of insulin; Z79.82 Long term (current) use of aspirin; Z79.899 Other long term (current) drug therapy
CPT/HCPCS: 71045; 80048; 84484; 85025; 93005; 93971; 96374; 99285; A4216; J2405

== ENCOUNTER 2018-05-27 23:13 | Emergency (ER) | payer MEDICARE, SELFPAY ==
[2018-04-17 11:26] VITALS: BMI 29.1
[2018-05-27 23:15] VITALS: BP 134/79; PULSE 76; RESP 18; TEMP 37; O2SAT 99; BMI 34.3
--- NOTE | 2018-05-27 23:23 | EKG12_ITS ---
Test Reason : CP Blood Pressure : / mmHG Vent. Rate : 072 BPM Atrial Rate : 072 BPM P-R Int : 138 ms QRS Dur : 098 ms QT Int : 440 ms P-R-T Axes : 053 -34 037 degrees QTc Int : 481 ms Normal sinus rhythm Left axis deviation Low voltage QRS Abnormal ECG Confirmed by TRAY JUAN, LEIDY ([id number]), editor farm journal ABRAM GRANADO ([id number]) on 05/29/2018 2:16:05 PM Referred By: PATRICIO Confirmed By:LEIDY FELIZ MD
--- NOTE | 2018-05-27 23:28 | ED.VISSUMM ---
- ER Visit Summary Date of Service: 05/27/18 Chief Complaint: Low blood sugar History of Present Illness: The patient is a 63 F presents to the emergency department low blood sugar. The patient is on 90 units of Levemir in the morning. She states she is been having low blood sugars especially at night. States tonight, she was feeling just unwell. She states she felt like her legs were rubbery. She took her blood sugar and it was 70. She did eat and took it again it was 120. For the time the patient arrived here, her blood sugar was back to 65. She states when her blood sugar gets low, she does feel nauseated will have chest pain. She denies any recent change in her medications. She denies any change in diet. She said no weight loss or night sweats. Physical Examination: Vital signs reviewed General: Well-nourished, well-developed Head: Normocephalic, atraumatic Eyes: Pupils equal and reactive, extraocular muscles intact Neck, supple, no lymphadenopathy Heart: Regular rate and rhythm Respiratory: No distress, clear bilaterally Abdomen: Soft, nontender, nondistended, no peritoneal signs Back: Nontender Extremities: Nontender, no edema, no cords Skin: Normal color no rash Neuro: Alert and oriented, no focal or lateralizing deficits Test Results: [] Emergency Department Course and Treatment: My suspicion is that the patient was having symptomatic low blood sugars. On arrival here was back to 65. IV was established. She was given an amp of D50 and had resolution of her symptoms. EKG was obtained which was unremarkable. Screening labs are also unremarkable. The patient has not required use of her sliding scale insulin and almost a month. At this time, I am going to have her cut her long-acting Levemir down to 75 units to try and avoid these lows. She is comfortable with this plan of care. She has no infectious process. I do feel that she is safe for outpatient therapy. She is comfortable with this plan of care and will be discharged home. Treatment Plan: [] Disposition: Discharge Impression: 1. Symptomatic hypoglycemia This note was generated with [employer] software. It may contain incorrect words, spelling, and punctuation that were not noted in review of the chart prior to signing ED Disposition - Plan for ED Patient: Instructions: ED Diabetes Hypoglycemia Insulin React Referrals: Edwin Perez MD [Primary Care Provider] - Additional Instructions: Cut your long-acting insulin to 75 units rather than 90
[2018-05-27 23:31] LABS: Bedside Glucose 65 mg/dL (70-110)
[2018-05-27] MEDS: Dextrose 50%-Water 25 GM/50 ML DISP.SYRIN IV (23:35)
[2018-05-27] MEDS: 0.9% Normal Saline 1,000 ML 1000 ML IV (23:37)
[2018-05-27 23:38] VITALS: BP 129/61; PULSE 72; RESP 14; O2SAT 97
[2018-05-28] LABS: Absolute Lymphocyte Count 1.24 X10^3/ul (0.83-4.51); Basophil# 0.05 X10^3/uL; Basophil% 0.8 % (0-1); Eosinophils% 1.7 % (0-5); Hematocrit 40.9 % (37-47); Hemoglobin 12.9 g/dl (12.0-15.0); Lymphocyte # 1.24 X10^3/ul (4.0); Mean Corp Hgb Conc 31.5 g/gl (32-36); Mean Corpuscular Hgb 28.5 pg (27.0-32.0); Mean Corpuscular Volume 90.5 fL (81-99); Mean Platelet Vol. 9.1 fl (6.2-12.0); Monocyte# 0.52 X10^3/uL; Monocyte% 8.8 % (0-10); Neutrophil # 3.97 X10^3/uL (2.7-7.7); Neutrophil % 67.4 % (47-70); POSITIVE COUNT NO; POSITIVE DIFFERENTIAL NO; POSITIVE MORPHOLOGY NO; Platelet Count 230 K/mm3 (150-450); RBC Distribution Width CV 14.1 % (11.6-14.6); RBC Distribution Width SD 46.3 fl (35.1-43.9); Red Blood Count 4.52 M/mm3 (4.2-5.4); White Blood Count 5.9 K/mm3 (4.4-11.0)
[2018-05-28 00:10] LABS: Bacteria 0 SEEN /hpf (None Seen); Mucous, Urine 0 SEEN /hpf (<or=2+); Squamous Epithelial Cells - UA 0 SEEN /hpf (5-10)
[2018-05-28 00:15] LABS: Color, Urine Yellow (Yellow); Glucose, Dipstick 250 mg/dl (Normal); Ketone-Dipstick Negative (Negative); Leukocyte Esterase-Dipstick 25 /ul (Negative); Nitrite-Dipstick Negative (Negative); Occult Blood-Urine Negative /ul (Negative); Protein-Dipstick Negative (Negative); Urine Bilirubin Dipstick Negative (Negative); Urine Clarity Sl. Cloudy (Clear); Urine Urobilinogen Normal (Normal)
[2018-05-28 00:27] LABS: ALB/GLOB Ratio 0.6 RATIO (0.9-2.4); AST(SGOT) 18 U/L (15-37); Alanine Aminotransfer ALT/SGPT 18 U/L (13-56); Albumin, Serum 2.9 g/dL (3.2-5.0); Alkaline Phosphatase 98 U/L (45-117); Anion Gap 5 (5-15); BUN 25 mg/dL (7-18); BUN/Creat Ratio 42.7 RATIO (10-20); Calcium,Total 8.7 mg/dL (8.5-10.1); Chloride 107 mmol/L (98-107); Creatinine, Serum 0.59 mg/dL (0.55-1.02); EST Glomerular Filtration Rate 111 mL/min (>60); Est Glom Filt Rate - Afr Amer 134 mL/min (>60); Estimated Creatinine Clearance 88.96 ml/min; Globulin 4.6 g/dL (2.2-4.2); Glucose 66 mg/dL (74-106); Potassium 3.7 mmol/L (3.5-5.1); Protein, Total 7.5 g/dL (6.4-8.2); Sodium Level 140 mmol/L (136-145)
[2018-05-28 00:51] LABS: Bedside Glucose 192 mg/dL (70-110)
[2018-05-28 01:07] VITALS: BP 128/60; PULSE 73; RESP 16
[2018-05-28 01:25] LABS: Red Blood Cells-Urine 5-10 SEEN /hpf (0-5); White Blood Cells 0-5 SEEN /hpf (0-5)
== END 2018-05-28 01:09 | disposition home or self-care (01) ==
LOC: ED 05-28 00:11
PROVIDERS: Emergency Provider Emergency Medicine; Family Provider Internal Medicine Infectious Disease; PCP Internal Medicine Infectious Disease
DX: E11.649 Type 2 diabetes mellitus with hypoglycemia without coma (principal); Z79.4 Long term (current) use of insulin
CPT/HCPCS: 80053; 81001; 82962; 85025; 93005; 96361; 96374; 99285; J7030; A4216

== ENCOUNTER 2018-08-09 11:10 | Emergency (ER) | payer MEDICARE, SELFPAY ==
[2018-08-09 11:11] VITALS: BP 129/69; PULSE 63; RESP 14; TEMP 36.6; O2SAT 98; BMI 30.6
--- NOTE | 2018-08-09 11:52 | RAD_ITS ---
STUDY: X-RAY - LUMBAR SPINE REASON FOR EXAM: Female, 63 years old. Status post fall TECHNIQUE: 3 view(s) of the lumbar spine were obtained. COMPARISON: None FINDINGS: Normal lumbar lordosis. There is no substantial scoliosis. Grade 1 anterolisthesis of L5 on S1, chronic in nature. There is multilevel endplate spondylosis of the lumbar vertebrae. Severe disc space height loss at L5-S1. There is no demonstrated fracture. The soft tissue structures are unremarkable. RAD/Lumbar Spine 2 or 3 Views IMPRESSION: No acute findings Electronically Signed: Edward Chavez DO at 12:44 EDT Tel , Service support ,
--- NOTE | 2018-08-09 11:53 | RAD_ITS ---
STUDY: X-RAY - PELVIS REASON FOR EXAM: Female, 63 years old. Fall TECHNIQUE: One view of the pelvis was obtained. COMPARISON: None. FINDINGS: No acute fracture or dislocation. Age-related degenerative changes. Normal soft tissues RAD/Pelvis 1 or 2 Views IMPRESSION: As above Electronically Signed: Edward Chavez DO at 12:44 EDT Tel , Service support ,
--- NOTE | 2018-08-09 12:18 | ED.VISSUMM ---
- ER Visit Summary Date of Service: 08/09/18 Chief Complaint: Fall with back pain History of Present Illness: The patient is a 63 F who notes a history of chronic back pain and reports today she was getting up into a van when she lost her balance and fell backwards. Significant other was on the ground behind her and she struck his thigh which helped to break her fall. She landed on the low back. She notes pain in the lumbar sacral region. She is able to stand with the assistance of EMS and was transported by squad. No head or neck injuries. Physical Examination: Afebrile vital signs are stable Gen: Well-nourished well-developed Head: Normocephalic atraumatic Eyes: Perrl EOMI ENT: TMs clear no rhinorrhea moist mucous membranes Neck: Supple no lymphadenopathy no JVD nontender CVS: Regular rate rhythm no murmurs normal S1-S2 Respiratory: No distress clear to auscultation bilaterally chest nontender Abdomen: Soft nontender nondistended normal bowel sounds no masses Back: Tender palpation over the lumbar spine and paraspinal musculature. Extremity: Nontender no edema negative logroll Skin: Normal color no rash Neuro: alert orientated ?3 CN II-XII intact normal strength sensation Psych: Normal affect normal mood Test Results: Pelvis and lumbar spine films obtained these were negative for acute fracture. Emergency Department Course and Treatment: Patient received a shot of Norflex. She has tramadol and muscle relaxants at home. Patient return if worsening or concerns follow-up with primary care Impression: 1. Fall 2. Back contusion This note was generated with [employer] dictation software. It may contain incorrect words, spelling, and punctuation that were not noted in review of the chart prior to signing ED Disposition - Plan for ED Patient: Disposition: Home or Assisted Living Instructions: ED Contusion Back Referrals: Edwin Perez MD [Primary Care Provider] - As Needed
[2018-08-09] MEDS: Orphenadrine 60 MG/2 ML Ampul IM (13:06)
[2018-08-09 13:10] VITALS: BP 136/69; PULSE 66; RESP 19; O2SAT 96
[2018-08-09 13:35] VITALS: BP 135/71; PULSE 62; RESP 16
== END 2018-08-09 13:35 | disposition home or self-care (01) ==
PROVIDERS: Emergency Provider Emergency Medicine; Family Provider Internal Medicine Infectious Disease; PCP Internal Medicine Infectious Disease
DX: S30.0XXA Contusion of lower back and pelvis, initial encounter (principal); V58.4XXA Person boarding or alighting a pick-up truck or van injured in noncollision transport accident, initial encounter; Y93.89 Activity, other specified; Y92.9 Unspecified place or not applicable; I11.0 Hypertensive heart disease with heart failure; I50.9 Heart failure, unspecified; E11.9 Type 2 diabetes mellitus without complications; G89.29 Other chronic pain; Z79.4 Long term (current) use of insulin; Z79.82 Long term (current) use of aspirin; Z79.899 Other long term (current) drug therapy
CPT/HCPCS: 72100; 72170; 96372; 99284

== ENCOUNTER 2018-08-11 11:40 | Emergency (ER) | payer MEDICARE, SELFPAY ==
[2018-08-11 11:42] VITALS: BP 111/70; PULSE 82; RESP 15; TEMP 36.1; O2SAT 97; BMI 30.2
--- NOTE | 2018-08-11 11:55 | RAD_ITS ---
STUDY: X-RAY - LEFT FOOT CLINICAL: Female, 63 years old. Pain and bruising following a fall especially of the fourth toe. TECHNIQUE: 4 view(s) of the foot. COMPARISON: None. FINDINGS: There is a plantar calcaneal spur. Normal visualized subtalar, talonavicular, calcaneocuboid, tarsal and tarsometatarsal articulations. There is demineralization of the metatarsi. There is degenerative arthrosis of the metatarsophalangeal joint of the hallux with a hallux valgus deformity. Normal tibial and fibular sesamoid bones. Normal interphalangeal joint of the great toe. Normal phalanges of the great toe. Normal second through fifth metatarsophalangeal joints. Nondisplaced transverse fracture at the base of the proximal phalanx of the third and fourth toes. Soft tissue swelling. RAD/Foot min 3 Views IMPRESSION: Nondisplaced fractures at the base of the proximal phalanges of the third and fourth toes. Soft tissue swelling. Electronically Signed: Bonifacio Wiseman, at 12:58 EDT , Service support ,
--- NOTE | 2018-08-11 11:55 | RAD_ITS ---
STUDY: X-RAY - LEFT TIBIA AND FIBULA REASON FOR EXAM: Female, 63 years old. Pain and bruising following a fall. TECHNIQUE: 2 view(s) of the tibia and fibula were obtained. COMPARISON: None. FINDINGS: Normal visualized tibia. Normal visualized fibula. Plantar spur. There is non-specific soft tissue swelling. RAD/Tibia & Fibula 2 Views IMPRESSION: Soft tissue swelling. Electronically Signed: Bonifacio Wiseman, at 12:58 EDT , Service support ,
--- NOTE | 2018-08-11 12:01 | ED.DCSUM_ITS ---
History of Present Illness Chief Complaint: Lower Extremity Injury Informant: Patient Occurred: Days Mechanism/Context: Fall Onset: Days - Injury occurred 2 days ago. Patient was in the emergency department. She was evaluated for back pain status post fall. She reports left leg pain and left foot pain especially the third and fourth toe. Context: Sudden Onset Timing: Continuous Quality of Pain: Dull, Aching Current Severity: Mild Maximum Severity: Moderate Worsened by: Walking Relieved by: Tramadol Associated Symptoms: Negative for: Parasthesia, Weakness, Loss of Funtion Narrative: Patient fell backwards 2 days ago getting into a van. She was seen and evaluated for back pain at that time. There was no mention of leg pain. She presents now because of leg pain and discoloration of her toes. She denies pa resthesia, anesthesia motors. She has no other complaints. Tetanus Immunization: 5-10 years - Past Medical History (1) CHF (congestive heart failure) Status: Acute (2) Chronic back pain Status: Chronic (3) Diabetes mellitus Status: Chronic (4) Hypertension Status: Chronic Past Medical History - Allergies and Home Meds Allergies/Adverse Reactions: Allergies acetaminophen [From Darvocet-N] Allergy (Verified 08/11/18 11:44) Unknown ferrous gluconate Allergy (Verified 08/11/18 11:44) Unknown propoxyphene [From Darvocet-N] Allergy (Verified 08/11/18 11:44) Unknown Sulfa (Sulfonamide Antibiotics) Allergy (Verified 08/11/18 11:44) Other fluoxetine [From Prozac] Adverse Reaction (Verified 08/11/18 11:44) Other Primary Care Physician: Edwin Perez MD [Primary Care Provider] - Prior records reviewed: Yes - Reviewed ER document from prior visit Surgical History: noncontributory Smoking Status: Never smoker - Family History Maternal Family History: Reports: Cancer Paternal Family History: Reports: Heart Disease Review of Systems Eyes: Denies: Visual changes - bilaterally, Blurred Vision - bilaterally Cardiovascular: Denies: Chest pain Respiratory: Denies: Dyspnea Gastrointestinal: Denies: Abdominal pain, Nausea, Vomiting Genitourinary: Denies: Dysuria, Hematuria, Frequency Musculoskeletal: Reports: Back pain, Swelling - Swelling of lower extremity is chronic., Extremity Pain - Leg and left third and fourth toe. Denies: Myalgias, Arthralgias, Neck pain Skin: Denies: Rash, Abrasions, Wounds Neurological: Denies: Headache, Weakness, Parasthesia, Numbness Endocrine: Denies: Polyuria, Polydipsia Hematologic: Denies: Easy bruising, Easy bleeding Allergy: Denies: Uticaria, Swelling of the mouth Physical Exam Vital Signs/Narrative: Vital Signs Temp Pulse Resp BP Pulse Ox 08/11/18 11:42 96.9 F L 82 15 111/70 97 Inital Vital Signs reviewed: Yes - Extremity Exam Right Pelvis: Negative for: Abrasion, Contusion, Deformity, Edema, Hematoma, Limited ROM, - Left Pelvis: Negative for: Abrasion, Contusion, Deformity, Edema, Hematoma, Limited ROM, - Left Hip: Negative for: Abrasion, Contusion, Deformity, Edema, Hematoma, Limited ROM, - Left Femur: Negative for: Abrasion, Contusion, Deformity, Edema, Hematoma, Limited ROM, - Left Knee: Negative for: Abrasion, Contusion, Deformity, Edema, Hematoma, Limited ROM, - - Read comments made under the left x-ray portion of the chart Left Tib Fib: Negative for: Abrasion, Contusion, Deformity, Edema, Hematoma, Limited ROM, - - Read comments made under the left ankle section of the chart Left Ankle: Edema - Pitting edema, Limited ROM - Secondary to pain. She has pain to palpation over the tibia and fibula on the left. There is no joint line tenderness of the left knee. The patella is not ballotable. There is no effusion. There is no laxity with varus valgus stress testing. Michael's test was negative. Modified Tai's test is negative. She has pain in the region of the mid to distal third of the left fibula. There is no obvious deformity.. Negative for: Abrasion, Contusion, Deformity, Hematoma Left Foot: Edema - Appears chronic, Limited ROM - Secondary to pain. Negative for: Abrasion, Contusion, Deformity, Hematoma Left Toe: Hematoma - Third and fourth toe with pain to palpation General: Well nourished, Well developed, Obese Head: Normocephalic, Atraumatic Eyes: Perrl, EOMI. Negative for: Pale conjunctiva, Scleral icterus Cardiovascular: Regular rate, Regular rhythm Respiratory: No distress Skin: Normal color, No rash. Negative for: Cyanosis, Jaundice, Pallor Neurological: Alert, Oriented x3, Cranial nerves II-XII grossly intact, Normal Strength, Normal Sensation, Normal DTR. Negative for: Normal Gait Psychological: Normal affect, Normal Mood Diagnostic/Tx/Re-eval Chest X-Ray - ED: Read by ED Physician, - - 2 view x-ray of the left tibia- fibula was interpreted by me as negative for fracture, subluxation, dislocation. There is no effusion of the knee or ankle. Three-view x-ray of the left foot was obtained and there is a nondisplaced fracture medial portion of the proximal phalanx at the MTP joint. There is chronic changes noted. There is no evidence of dislocation or subluxation of any of the phalanges. - Medical Decision Making To evaluate patient's findings will obtain x-ray of the left tib-fib and left foot. Presently she is not having any pain. She took tramadol earlier this morning. We will treat together. Hard soled shoe and follow-up with PCP since management is nonoperative. ED Disposition - Plan for ED Patient: Diagnosis: Nondisplaced fracture of proximal phalanx of left lesser toe(s), initial encounter for closed fracture, Contusion of left lower leg, initial encounter Instructions: ED Fx Toe Closed, ED Contusion Lower Ext Referrals: Edwin Perez MD [Primary Care Provider] - 10-14 Days if not better Additional Instructions: Gino tape 3rd-4th toe. Change tape every 2 to 3 days. You may have pain for 2 to 4 weeks. The toe may remain discolored for 4 to 6 weeks.
[2018-08-11 12:05] VITALS: BP 109/53; PULSE 72; RESP 18; O2SAT 97
[2018-08-11 13:08] VITALS: PULSE 78; RESP 16; O2SAT 98
== END 2018-08-11 13:09 | disposition home or self-care (01) ==
PROVIDERS: Emergency Provider Emergency Medicine; Family Provider Internal Medicine Infectious Disease; PCP Internal Medicine Infectious Disease
DX: S92.515A Nondisplaced fracture of proximal phalanx of left lesser toe(s), initial encounter for closed fracture (principal); S80.12XA Contusion of left lower leg, initial encounter; V58.4XXA Person boarding or alighting a pick-up truck or van injured in noncollision transport accident, initial encounter; Y93.89 Activity, other specified; Y92.9 Unspecified place or not applicable; I11.0 Hypertensive heart disease with heart failure; I50.9 Heart failure, unspecified; E11.9 Type 2 diabetes mellitus without complications; E66.9 Obesity, unspecified; Z68.30 Body mass index [BMI] 30.0-30.9, adult; Z79.4 Long term (current) use of insulin; Z79.82 Long term (current) use of aspirin; Z79.899 Other long term (current) drug therapy
CPT/HCPCS: 73590; 73630; 99282

== ENCOUNTER → 2018-08-18 10:52 | Outpatient (CLI) | payer MEDICARE, SELFPAY ==
[2018-08-11 11:42] VITALS: BMI 30.2
--- NOTE | 2018-08-18 10:56 | VDLE_ITS ---
Reason For Study: pain and swelling RIGHT CFV is compressible, spontaneous, phasic, competent and demonstrates normal augmentation. FV is compressible, spontaneous, phasic, competent and demonstrates normal augmentation. POP V is compressible, spontaneous, phasic, competent and demonstrates normal augmentation. T/P Trunk is compressible. PTV is compressible. RT PerV is compressible. SFJ is competent. GSV is competent throughout. SSV is competent. Procedure Exam performed in department. The exam was diagnostic. A preliminary report was called and/or faxed to Dr. Carter @ 11:30 am. Interpretation Summary 1. Right leg with no DVT, SVT or reflux. Ordering Physician: Noe Carter Referring Physician: Edwin Perez Performed By: Erin Zepeda, RDCS, RVT
== END ==
LOC: CVS 10:53
PROVIDERS: Family Provider Internal Medicine Infectious Disease; PCP Internal Medicine Infectious Disease; Referring Provider Surgery Vascular Surgery; Visit Provider Surgery Vascular Surgery
DX: M79.604 Pain in right leg (principal); M79.89 Other specified soft tissue disorders
CPT/HCPCS: 93971

== ENCOUNTER 2019-02-19 14:04 | Emergency (ER) | payer MEDICARE, SELFPAY ==
[2019-02-19 14:05] VITALS: BP 147/91; PULSE 93; PULSE 94; RESP 12; RESP 18; TEMP 36.4; O2SAT 93; BMI 66.8
--- NOTE | 2019-02-19 14:54 | RAD_ITS ---
STUDY: X-RAY CHEST REASON FOR EXAM: Female, 63 years old. TECHNIQUE: 2 views COMPARISON: April 17, 2018. FINDINGS: The lungs are clear and expanded. There is no demonstrated pleural abnormality. Normal size heart. Normal mediastinum and robin. Normal visualized pulmonary arteries. Normal visualized aortic arch and descending thoracic aorta. Mild kyphosis and osteoporosis of thoracic spine. Normal visualized ribs, clavicles, and shoulders. There is no demonstrated abnormality of the visualized soft tissue structures of the upper abdomen. RAD/Chest PA and Lateral IMPRESSION: Negative chest unchanged since April 17, 2018 Electronically Signed: Radha Agrawal, at 15:49 EST Tel , Service support ,
--- NOTE | 2019-02-19 14:54 | CT_ITS ---
STUDY: CT BRAIN WITHOUT CONTRAST REASON FOR EXAM: Female, 63 years old. RADIATION DOSAGE (If Supplied By Facility): CTDIvol = ( 44.99 ) mGy, DLP = ( 812.98 ) mGycm TECHNIQUE: Transaxial CT imaging of the brain was performed without administration of intravenous contrast material. Individualized dose optimization techniques were used for this CT. COMPARISON: No relevant priors. FINDINGS: Normal soft tissue structures. Normal calvarium. Normal size ventricles and extra-axial spaces for the patient's age. Normal white matter tracts of the cerebral hemispheres. Normal basal ganglia and thalami. Normal brainstem. Normal cerebellum. There is no intracranial hemorrhage. There are no findings of an acute ischemic infarction. Normal visualized paranasal sinuses. CT/Brain/Head without Contrast IMPRESSION: Normal unenhanced CT scan of the brain. Electronically Signed: Radha Agrawal, at 16:09 EST Tel , Service support ,
--- NOTE | 2019-02-19 14:59 | ED.VISSUMM ---
- ER Visit Summary Date of Service: 02/19/19 Chief Complaint: Fall History of Present Illness: The patient is a 63 F who was visiting her in the hospital. She tripped on a cord and fell. She does not remember all of the circumstances of the fall, but she does remember tripping. She says she did not lose consciousness. She complains of right parietal head pain and feels a knot there. She also planes of retrosternal chest pain which is worse with moving and breathing. Denies any other injuries or symptoms. She takes aspirin but denies any other blood thinners. Physical Examination: Afebrile vital signs unremarkable. Patient's head and neck are grossly atraumatic. She is tender over the right parietal scalp. HEENT exam unremarkable. Neck is nontender. Arms nontender. Heart regular. Lungs clear. Abdomen nontender. Back is nontender. Legs are nontender. Cranial nerves grossly intact. Good strength and sensation. Test Results: CT brain and chest x-ray pending. Emergency Department Course and Treatment: Patient sustained a mechanical fall. I believe she is low risk for any significant injury. Will image the affected areas. She declined pain medicine. Currently requested pain medicine. She was treated with Motrin. Her imaging was unremarkable. She will be discharged home. Follow-up with her primary care doctor. Use [id number] remedies for pain. To discharge, the patient requested something stronger for pain. I reassessed her. She has some sternal tenderness with light touch. Epigastric and abdominal exam is unremarkable. There is no crepitus or other abnormal findings on exam. She was treated with [place] here and a short course of [place] for home. Patient said that she can tolerate this well. Treatment Plan: As above Disposition: Discharge Impression: 1. Closed head injury 2. Chest wall pain This note was generated with [employer] dictation software. It may contain incorrect words, spelling, and punctuation that were not noted in review of the chart prior to signing ED Disposition - Plan for ED Patient: Instructions: FALL, Mechanical Prescriptions: Ibuprofen [Motrin] 800 mg PO TID PRN PRN #20 tab PRN Reason: Pain Or Fever Prescription Printed Hydrocodone Bitart/Apap 5-325 [[place] 5MG-325MG] 1 tab PO Q6H PRN PRN 1 Days #4 tab PRN Reason: Pain Prescription Printed Referrals: Edwin Perez MD [Primary Care Provider] -
[2019-02-19] MEDS: Ibuprofen 600 MG Tablet PO (15:39)
--- NOTE | 2019-02-19 16:16 | DCINST.ED_ITS ---
ED Disposition - Plan for ED Patient: Instructions: FALL, Mechanical Prescriptions: Ibuprofen [Motrin] 800 mg PO TID PRN PRN #20 tab PRN Reason: Pain Or Fever Prescription Printed Hydrocodone Bitart/Apap 5-325 [[place] 5MG-325MG] 1 tab PO Q6H PRN PRN 1 Days #4 tab PRN Reason: Pain Prescription Printed Referrals: Edwin Perez MD [Primary Care Provider] -
[2019-02-19 17:10] VITALS: BP 146/91; PULSE 94; RESP 17; O2SAT 94
[2019-02-19] MEDS: HYDROcodone Bitartrate/Apap 5/325 Tablet PO (17:10)
[2019-02-19] MEDS: Ondansetron ODT 4 MG Tablet PO (17:14)
== END 2019-02-19 17:17 | disposition home or self-care (01) ==
LOC: ED 14:57
PROVIDERS: Emergency Provider Emergency Medicine; Family Provider Internal Medicine Infectious Disease; PCP Internal Medicine Infectious Disease
DX: S06.0X0A Concussion without loss of consciousness, initial encounter (principal); W18.09XA Striking against other object with subsequent fall, initial encounter; Y93.89 Activity, other specified; Y92.239 Unspecified place in hospital as the place of occurrence of the external cause; R07.89 Other chest pain; I11.0 Hypertensive heart disease with heart failure; I50.9 Heart failure, unspecified; E11.9 Type 2 diabetes mellitus without complications; Z79.82 Long term (current) use of aspirin; Z79.4 Long term (current) use of insulin; Z79.899 Other long term (current) drug therapy
CPT/HCPCS: 70450; 71046; 99283

== ENCOUNTER → 2019-06-07 12:10 | Outpatient (CLI) | payer MEDICARE, SELFPAY ==
[2019-06-09 08:08] LABS: Vitamin D,25 Hydroxy 17.6 ng/mL
== END ==
LOC: MTLAB 12:14
PROVIDERS: PCP Internal Medicine Infectious Disease; Referring Provider Podiatrist; Visit Provider Podiatrist
DX: E55.9 Vitamin D deficiency, unspecified (principal); M85.80 Other specified disorders of bone density and structure, unspecified site
CPT/HCPCS: 36415; 82306

== ENCOUNTER → 2019-07-11 11:52 | Outpatient (CLI) | payer MEDICARE, SELFPAY ==
--- NOTE | 2019-07-11 11:55 | RAD_ITS ---
STUDY: X-RAY - RIGHT TIBIA AND FIBULA REASON FOR EXAM: Female, 64 years old. right leg pain and swelling TECHNIQUE: 2 view(s) of the tibia and fibula were obtained. COMPARISON: None. FINDINGS: Normal visualized tibia. Normal visualized fibula. The soft tissue structures are unremarkable. RAD/Tibia & Fibula 2 Views IMPRESSION: Normal x-ray examination of the tibia and fibula. Electronically Signed: Ted Ventura MD at 12:36 EDT Tel , Service support ,
== END ==
PROVIDERS: PCP Internal Medicine Infectious Disease; Referring Provider Podiatrist; Visit Provider Podiatrist
DX: M79.604 Pain in right leg (principal); M79.89 Other specified soft tissue disorders
CPT/HCPCS: 73590

== ENCOUNTER 2019-08-27 09:41 | Outpatient (RCR) | payer MEDICARE, SELFPAY ==
--- NOTE | 2019-08-27 11:27 | HP.PTEVAL2 ---
Patient's Visit Information VENUS CAMPBELL is a 64 year old F referred to Physical Therapy by Dr. Silvestre Rodgers DPM with a diagnosis of . Date of Evaluation: Physical Therapist: Barak Machado, PT, ATC - Anticipated Interventions Thank you for the opportunity to evaluate your patient. For Medicare and Medicare HMO plans, please review the plan of care and approve it. It will need to be FAXED BACK to us at [phone] for Medicare purposes. For Medicare only, by signing this I certify the plan of care. Please let me know if there are questions or concerns regarding this plan of care. Physician Signature: Date:
--- NOTE | 2019-11-28 13:34 | HP.PT.NRP ---
VENUS CAMPBELL was seen in my office for initial evaluation on 08/27/19. The following Plan of Care was established for this patient: Initial Frequency: 2x /Week Initial Duration: 4-6 Weeks Patient/Client Instruction: Educate patient on: Condition, Plan of Care For the Purpose of:: To improve self management Therapeutic Exercise to Include: Strength training, Endurance training, Balance training, Gait and locomotor training For the Purpose of:: To improve muscle performance and motor function, To increase tolerance to activity/condition/position, To improve gait and locomotor functions This patient was last seen in our office . Pertinent comments regarding their Physical therapy will appear below: Pt was evaluated on 08/27/2019 and has not returned through todays date. Pt is discontinued at this time. At this point I will be discontinuing this patient from physical therapy. I would be happy to see this patient again in the future if found appropriate by the physician. Thank you! Barak Machado, PT, ATC
== END 2019-08-27 19:00 | disposition home or self-care (01) ==
LOC: PT 09:41
PROVIDERS: PCP Internal Medicine Infectious Disease; Referring Provider Podiatrist; Visit Provider Podiatrist
DX: R29.898 Other symptoms and signs involving the musculoskeletal system (principal); R26.81 Unsteadiness on feet
CPT/HCPCS: 97161

== ENCOUNTER → 2019-11-12 08:48 | Outpatient (CLI) | payer MEDICARE, SELFPAY ==
--- NOTE | 2019-11-12 08:52 | VDLE_ITS ---
Reason For Study: Venous insufficiency RIGHT LEFT CFV is compressible, spontaneous, phasic, CFV is compressible, spontaneous, phasic, competent and demonstrates normal competent, and demonstrates normal augmentation. augmentation. FV is compressible, spontaneous, phasic, FV is compressible, spontaneous, phasic, competent and demonstrates normal competent and demonstrates normal augmentation. augmentation. POP V is compressible, spontaneous, phasic, POP V is compressible, spontaneous, phasic, competent and demonstrates normal competent and demonstrates normal augmentation. augmentation. T/P Trunk is compressible. T/P Trunk is compressible. PTV is compressible. PTV is compressible. RT PerV is compressible. LT PerV is compressible. SFJ is competent and measures 0.91 x 0.94 cm. SFJ is competent and measures 0.61 x 0.62 cm. GSV proximal thigh measures 0.48 x 0.52 cm. GSV proximal thigh measures 0.53 x 0.53 cm. GSV at knee measures 0.38 x 0.37 cm. GSV above knee is INCOMPETENT for greater GSV INCOMPETENT throughout for greater than than 0.5 seconds. 0.5 seconds. GSV at knee measures 0.35 x 0.33 cm. SSV proximal calf is competent and measures GSV below knee is competent. 0.14 x 0.14 cm. ASV proximal calf is INCOMPETENT for greater Procedure than 0.5 seconds and measures 0.35 x 0.32 cm. Exam performed in department. SSV proximal calf is competent and measures 0.20 x 0.19 cm. Interpretation Summary Deep veins of the lower extremities are bilaterally patent and compressible segmentally. There is no evidence of deep vein thrombosis on either side. Valvular competence appears intact within the proximal deep venous systems bilaterally. The great saphenous veins appear bilaterally patent and compressible segmentally. Sapheno-femoral junctions are bilaterally competent . The right great saphenous vein appears segmentally incompetent. The left great saphenous vein appears incompetent above the knee. The left great saphenous vein appears competent below the knee. Small saphenous veins are patent and competent bilaterally. An accessory saphenous vein in the left proximal calf is incompetent. Ordering Physician: Silvestre Rodgers Referring Physician: Edwin Perez Performed By: Zaina Clay RVT
== END ==
PROVIDERS: PCP Internal Medicine Infectious Disease; Referring Provider Podiatrist; Visit Provider Podiatrist
DX: I83.11 Varicose veins of right lower extremity with inflammation (principal); I83.12 Varicose veins of left lower extremity with inflammation
CPT/HCPCS: 93970

== ENCOUNTER → 2020-11-19 09:06 | Outpatient (CLI) | payer MEDICARE, SELFPAY ==
--- NOTE | 2020-11-19 14:13 | PFT ---
INTRODUCTION: The patient is a 65-year-old female that presents for pulmonary function studies secondary to a diagnosis of shortness of breath. Respiratory therapy reported good patient effort. Bronchodilators were used during testing. INTERPRETATION: Forced expiration spirometry demonstrates no evidence of a large airways obstructive ventilatory defect. There was no significant response to aerosolized bronchodilators. Spirograms are of good quality and plateau normally. Body plethysmography was performed and revealed a decreased TLC to 4.54 L, 83% of predicted, indicative of a mild restrictive ventilatory impairment. Diffusing capacity by single breath CO is within normal limits. IMPRESSION: Isolated mild restrictive ventilatory impairment, likely secondary to body habitus.
== END ==
PROVIDERS: PCP Internal Medicine Infectious Disease
DX: R06.02 Shortness of breath (principal)
CPT/HCPCS: 94060; 94726; 94729

== ENCOUNTER → 2020-11-20 09:10 | Outpatient (CLI) | payer MEDICARE, SELFPAY ==
--- NOTE | 2020-11-20 09:13 | RAD_ITS ---
STUDY: X-RAY - ESOPHAGUS (BARIUM SWALLOW) WITH FLUOROSCOPY REASON FOR EXAM: Female, 65 years old. DYSPHAGIA TECHNIQUE: 16 view(s) of the esophagus were obtained following swallowing of barium. FLUOROSCOPY TIME (if supplied): (31 seconds) minutes/seconds COMPARISON: None. FINDINGS: There is no demonstrated esophageal foreign body. There is no demonstrated stricture or mucosal abnormality. Normal gastroesophageal junction, without a demonstrated hiatal hernia. The patient ingested a 12 mm tablet of barium without any difficulty. There is atherosclerotic tortuosity of the aortic arch and descending thoracic aorta. Normal visualized pulmonary parenchyma. Normal visualized osseous structures of the thorax. RAD/Esophagus Single Contrast IMPRESSION: Normal plain film x-ray examination (barium swallow) of the esophagus. Electronically Signed: Bonifacio Wiseman MD at 9:59 EDT , Service support ,
== END ==
LOC: RAD 09:11
PROVIDERS: PCP Internal Medicine Infectious Disease; Referring Provider Internal Medicine Gastroenterology; Visit Provider Internal Medicine Gastroenterology
DX: I65.23 Occlusion and stenosis of bilateral carotid arteries (principal); R13.10 Dysphagia, unspecified
CPT/HCPCS: 74220

== ENCOUNTER 2021-05-30 14:54 | Emergency (ER) | payer MEDICARE, SELFPAY ==
[2021-05-30 14:55] VITALS: BP 137/84; PULSE 68; RESP 18; TEMP 36.7; O2SAT 97; BMI 40.7
--- NOTE | 2021-05-30 15:04 | EKG12_ITS ---
Test Reason : CP Blood Pressure : / mmHG Vent. Rate : 066 BPM Atrial Rate : 066 BPM P-R Int : 144 ms QRS Dur : 096 ms QT Int : 430 ms P-R-T Axes : 022 -31 060 degrees QTc Int : 450 ms Normal sinus rhythm Left axis deviation Abnormal ECG Confirmed by TRAY JUAN, LEIDY ([id number]), book or script editor KIRK PATRICK ([id number]) on 06/01/2021 10:44:27 AM Referred By: MATHEUS Confirmed By:LEIDY FELIZ MD
--- NOTE | 2021-05-30 15:13 | EDS_ITS ---
HPI History of Present Illness Chief Complaint: Chest Pain Informant: patient Onset/Context/Timing Activity at onset: gradual Timing: Continuous Quality: Positive for Pressure Location: Substernal Current Severity: Mild Maximum Severity: Mild Worsened By: Nothing Relieved By: Nothing Associated Symptoms: Negative for Nausea, Vomiting, Diaphoresis, Cough, Fever, Lightheadedness, Acid Reflux and Palpitations Narrative Narrative: female history of anxiety, CHF, diabetes and depression. Prior cardiac cath years ago which was negative. She has no known cardiac disease. S he is never had a stent or bypass.66-year-old she has had chest pressure. She states it is constant. Is better she sitting upright States that s. Is not associated with exertion.he has not felt well felt like she had flulike symptoms for a month. For the last week There is no nausea. No diaphoresis. Today she states she got anxious when she was at home her was taking longer than she thought to come home she says she started feeling anxious and starts worrying about her chest discomfort more. She denies any radiation to her jaw neck or arms. Nontender back. Prior Similar Symptoms: Yes Recent Illness/Hospitalization: No CVD Risk Factors: Positive for Diabetes; Negative for Smoking PE Risk Factors: Negative for Recent Travel/Surgery, Recent Immobilization, Prior DVT or PE, Cancer and OCP + Smoking + >/=35 TAD Risk Factors: Negative for Marfan's Syndrome [facility] Medical History Anxiety Arthritis CHF (congestive heart failure) Depression Diabetes Home Medications aspirin 81 mg PO DAILY 07/11/15 [History Last Taken 08/11/18] carvedilol 12.5 mg PO BID 07/12/15 [History Last Taken 08/11/18] cyclobenzaprine 10 mg PO TID PRN PRN 07/12/15 [History Last Taken 08/11/18] famotidine 20 mg PO BID 07/12/15 [History Last Taken 08/11/18] lisinopril 5 mg PO DAILY 07/12/15 [History Last Taken 08/11/18] tramadol 50 mg PO Q6H PRN PRN 07/12/15 [History Last Taken 08/11/18] atorvastatin [Lipitor] 40 mg PO DAILY 05/21/16 [History Last Taken 08/11/18] latanoprost 1 drp EACH EYE BREAKFAST 05/21/16 [History Last Taken 08/11/18] insulin detemir U-100 [Levemir FlexTouch U-100 Insuln] 50 units SUBCUT BREAKFAST 12/15/16 [History Last Taken 08/11/18] insulin detemir U-100 [Levemir FlexTouch U-100 Insuln] 30 units SUBCUT DINNER 07/24/17 [History Last Taken 08/11/18] paroxetine HCl 40 mg PO DAILY 07/25/17 [History Last Taken 08/11/18] timolol maleate 1 drp EACH EYE BID 07/25/17 [History Last Taken 08/11/18] nitroglycerin 0.4 mg SUBLINGUAL X1 PRN 02/19/19 [History Last Taken Unknown] Allergy/AdvReac Type Severity Reaction Status Date / Time acetaminophen Allergy Unknown Verified 05/30/21 15:00 [From Darvocet-N] ferrous gluconate Allergy Unknown Verified 05/30/21 15:00 propoxyphene Allergy Unknown Verified 05/30/21 15:00 [From Darvocet-N] Sulfa (Sulfonamide Allergy Other Verified 05/30/21 15:00 Antibiotics) fluoxetine [From Prozac] AdvReac Other Verified 05/30/21 15:00 Family History Other Diabetes Heart disease Seizures Surgical History History of partial hysterectomy Social History Smoking Status: Never smoker ROS ROS ED ROS Narrative Denies recent illness. Review of Systems ROS Unobtainable: Denies due to encephalopathy Constitutional Constitutional ED: Denies fever(s) Eyes Eyes: Denies none ENT ENT ED: Denies ear pain Cardiovascular Cardiovascular: Reports as per HPI and chest pain; Denies palpitations or racing heartbeat Respiratory/Chest Respiratory/Chest: Denies cough or dyspnea Gastrointestinal Gastrointestinal: Denies constipation, diarrhea, nausea or vomiting Genitourinary Genitourinary ED: Denies dysuria or hematuria Musculoskeletal Musculoskeletal: Denies myalgias Integumentary Denies rash Neurologic Neurologic: Denies headache(s) Psychiatric Psychiatric: Denies depression Endocrine Endocrinology: Denies polyuria Hematologic/Lymphatic Hematologic/Lymphatic: Denies easy bruising Allergic/Immunologic Allergic/Immunologic ED: Denies urticaria EXAM Physical Exam Narrative Exam Narrative: 66-year-old female no acute distress. Vital signs stable afebrile. Pulse ox 97% on room air no signs of hypoxia. HEENT unremarkable. Neck nontender. Lungs clear to auscultation. Heart regular rate and rhythm rate about 70 no murmur. Chest wall nontender. Abdomen soft nontender. Obese. Moving all 4 extremities. Calves nontender. Neurologically she is awake alert with no focal motor deficits. Const Vital Signs: 05/30/21 14:55 05/30/21 15:23 Temperature 98.0 F Temperature Source Temporal Pulse Rate 68 Respiratory Rate 18 Blood Pressure 137/84 H Blood Pressure Mean 101 Pulse Ox 97 96 Oxygen Delivery Method Room Air Room Air Positive well nourished, well developed and obese; Negative for cachectic, contractures or unkempt General Appearance ED: well developed and NAD; Negative for unkempt, cachectic, contractures or pallor Nutritional Appearance: obese; Negative for cachectic HEENT Reports moist mucous membranes normocephalic and atraumatic; Negative for trauma or tenderness Eyes PERRL and EOMs intact bilaterally General Eye ED: Negative for pale conjunctiva or scleral icterus Neck no lymphadenopathy, supple and no JVD General: Negative for tenderness Chest Wall inspection of chest normal and palpation of chest normal Chest: Negative for tenderness Resp normal respiratory effort and clear to auscultation bilaterally Effort and Inspection: respiratory distress Auscultation: Negative for rales, rhonchi or wheezes Cardio regular rate, regular rhythm, S1 normal heart sound, S2 normal heart sound and no murmurs Rate: Negative for tachycardic GI normal to inspection, nondistended, normoactive bowel sounds, soft to palpation, non-tender, non-distended and no masses; Negative for hepatosplenomegaly Auscultation: Negative for hyperactive bowel sounds Palpation: Negative for splenomegaly, mass or other Back/Spine no CVA tenderness; Negative for no thoracic nor lumbar tenderness General Back: Negative for CVA tenderness Extremity normal to inspection General Extremety ED: Negative for edema or tenderness General Extremity: Negative for edema Neuro oriented x3 Sensorium / Orientation: awake, alert, oriented to person, oriented to place and oriented to time Motor Exam: strength 5/5 throughout Psych mental status grossly normal Appearance: Negative for unkempt Mood & Affect: Negative for depressed or tearful Skin no rashes or lesions noted and no wounds General Skin Exam: Negative for jaundice or pallor Heart Score History: Slightly/Non-Suspicious ECG: Normal Age: >/= 65 years Risk Factors: 1 or 2 Risk Factors Troponin: </= Normal Limit Score: 3 MDM MDM MDM Narrative Medical decision making narrative: 66-year-old female with atypical weeklong history of chest discomfort. Does not sound cardiac in nature. She does have risk factors given her age, obesity and diabetes. She undergo a cardiac work- up. Repeat exam patient is doing well at 4:45 PM. Work-up is negative. She will be discharged home with outpatient follow-up. Prior to discharge patient states she felt like her blood sugar was dropping. She is diabetic. Her blood sugar was 49. She was given something to drink and eat to bring that up. Lab Data Attestation: I reviewed the patient's lab results. Lab results narrative: CBC shows a white count of 5. H&H 11.6 and 34.9. Platelets 235. Blood counts are lower than her most recent one a couple years ago her hemoglobin was 12.9. I discussed that with the patient. Chest x-ray unremarkable. Chemistries unremarkable. Troponin was 6. I do not think a second troponin needs to be done because she has had this discomfort for days. Labs: Laboratory Results - last 24 hr 05/30/21 05/30/21 13:10 13:10 WBC 5.6 RBC 4.21 Hgb 11.6 L Hct 34.9 L MCV 82.9 MCH 27.6 MCHC 33.2 RDW Std Deviation 48.9 H RDW Coeff of Mylene 16.8 H Plt Count 235 MPV 8.7 Immature Gran % (Auto) 0.500 Neut % (Auto) 65.0 Lymph % (Auto) 22.8 [place] % (Auto) 7.7 Eos % (Auto) 3.1 Baso % (Auto) 0.9 Absolute Neuts (auto) 3.6 Absolute Lymphs (auto) 1.27 Nucleated RBC % 0 Sodium Cancelled Potassium Cancelled Chloride Cancelled Carbon Dioxide Cancelled Anion Gap Cancelled BUN Cancelled Creatinine Cancelled Estim Creat Clear Calc Cancelled Est GFR (MDRD) Af Amer Cancelled Est GFR (MDRD) Non-Af Cancelled BUN/Creatinine Ratio Cancelled Glucose Cancelled Calcium Cancelled Troponin I High Sens Cancelled Radiography Chest X-Ray - ED: 1 View, Read by ED Physician, Heart, Lungs, Mediastinum, Bony Structures, No Acute Disease and Chronic Changes Diagnostic Testing: Clinical Impression(s) from Imaging Studies Chest X-Ray 05/30/21 15:29 IMPRESSION: Normal x-ray examination of the chest. Electronically Signed: Ted Ventura MD at 15:57 EST , Chest x-ray, portable, single view interpreted by myself shows chronic changes no acute abnormality. Normal cardiac silhouette mediastinum. Rhythm Strip Rhythm Strip: Sinus Rhythm Rate: 66 Ectopy: None EKG Initial EKG: Attestation: I personally reviewed and interpreted this EKG as follows: Interpretation: Sinus Rhythm and No Acute Injury Pattern Comments: Normal sinus rhythm rate of 66 no acute signs of NH nor ischemia. No prior change from an EKG from 2019. Left axis deviation. Low voltage. Prior EKG tracings: available for review Prior: Unchanged Discharge Plan Triage Chief Complaint: Chest Pain ED Provider: Mejia Montoya Dx/Rx/DC Orders Clinical Impression: Atypical chest pain, Diabetes mellitus, Hypoglycemia associated with diabetes Instructions: ED Chest Pain, Uncertain Cause Prescriptions: No Action aspirin 81 MG tablet,chewable 81 mg PO DAILY RF: 0 cyclobenzaprine 10 MG tablet 10 mg PO TID PRN PRN (Reason: Muscle Spasm) RF: 0 carvedilol 6.25 MG tablet 12.5 mg PO BID RF: 0 tramadol 50 MG tablet 50 mg PO Q6H PRN PRN (Reason: Pain) RF: 0 famotidine 20 MG tablet 20 mg PO BID RF: 0 lisinopril 5 MG tablet 5 mg PO DAILY RF: 0 latanoprost 1 DROP bottle 1 drp Each Eye BREAKFAST RF: 0 atorvastatin [Lipitor] 40 MG tablet 40 mg PO DAILY RF: 0 insulin detemir U-100 [Levemir FlexTouch U-100 Insuln] 100 UNITS/ML insulin pen 50 units subcut BREAKFAST RF: 0 insulin detemir U-100 [Levemir FlexTouch U-100 Insuln] 100 UNITS/ML insulin pen 30 units subcut DINNER RF: 0 paroxetine HCl 10 MG tablet 40 mg PO DAILY RF: 0 timolol maleate 1 DROP drops 1 drp Each Eye BID RF: 0 nitroglycerin 0.4 MG tablet 0.4 mg sublingual X1 PRN (Reason: CHEST PAIN) RF: 0 Primary Care Provider: Edwin Perez Referrals: Edwin Perez MD [Primary Care Provider] - As soon as possible Activity Restrictions/Additional Instructions: Your labs are unremarkable. Your blood counts are a little lower than normal. Follow-up with your doctor to be reevaluated. Disposition Disposition: Home, Self Care
[2021-05-30 15:19] LABS: Absolute Lymphocyte Count 1.27 X10^3/uL (0.83-4.51); Absolute Neutrophil Count 3.6 X10^3/uL (2.0-7.7); Basophil# 0.05 X10^3/uL; Basophil% 0.9 % (0-1); Eosinophil# 0.17 X10^3/uL; Eosinophils% 3.1 % (0-5); Hematocrit 34.9 % (37-47); Hemoglobin 11.6 g/dL (12.0-15.0); Lymphocyte # 1.27 X10^3/ul (0.83-4.51); Lymphocyte % 22.8 % (19-41); Mean Corp Hgb Conc 33.2 g/dL (32-36); Mean Corpuscular Hgb 27.6 pg (27.0-32.0); Mean Corpuscular Volume 82.9 fL (81-99); Mean Platelet Vol. 8.7 fl (6.2-12.0); Monocyte# 0.43 X10^3/uL; Monocyte% 7.7 % (0-10); NRBC Flagged by Analyzer 0 % (0-5); Neutrophil # 3.62 X10^3/uL (2.7-7.7); Platelet Count 235 K/mm3 (150-450); RBC Distribution Width CV 16.8 % (11.6-14.6); RBC Distribution Width SD 48.9 fl (35.1-43.9); Red Blood Count 4.21 M/mm3 (4.2-5.4); White Blood Count 5.6 K/mm3 (4.4-11.0)
[2021-05-30 15:23] VITALS: O2SAT 96
[2021-05-30] MEDS: Aspirin 81 MG TAB.CHEW 324 MG PO (15:25)
--- NOTE | 2021-05-30 15:29 | RAD_ITS ---
STUDY: X-RAY CHEST REASON FOR EXAM: Female, 66 years old. chest pain TECHNIQUE: Single AP portable view of the chest. COMPARISON: 02/19/2019 FINDINGS: The lungs are clear and expanded. There is no demonstrated pleural abnormality. Normal size heart. Normal mediastinum and robin. Normal visualized pulmonary arteries. Normal visualized aortic arch and descending thoracic aorta. Normal visualized thoracic spine. Normal visualized ribs, clavicles, and shoulders. There is no demonstrated abnormality of the visualized soft tissue structures of the upper abdomen. RAD/Chest 1 View (Portable) IMPRESSION: Normal x-ray examination of the chest. Electronically Signed: Ted Ventura MD at 15:57 EST ,
[2021-05-30 16:27] LABS: Anion Gap 4 (5-15); BUN 18 mg/dL (7-18); BUN/Creat Ratio 18.6 RATIO (10-20); Calcium,Total 8.9 mg/dL (8.5-10.1); Chloride 105 mmol/L (98-107); Creatinine, Serum 0.97 mg/dL (0.55-1.02); EST Glomerular Filtration Rate 61 mL/min (>60); Est Glom Filt Rate - Afr Amer 74 mL/min (>60); Estimated Creatinine Clearance 56.23 ml/min; Glucose 63 mg/dL (74-106); Potassium 3.8 mmol/L (3.5-5.1); Sodium Level 139 mmol/L (136-145); Troponin-I HS 6 pg/mL (3.0-54.0)
[2021-05-30 16:41] LABS: Bedside Glucose 49 mg/dL (74-106)
[2021-05-30 16:45] VITALS: BP 135/82; PULSE 69; RESP 20; O2SAT 95
[2021-05-30 17:01] LABS: Bedside Glucose 93 mg/dL (74-106)
== END 2021-05-30 17:15 | disposition home or self-care (01) ==
PROVIDERS: Emergency Provider Emergency Medicine; PCP Internal Medicine Infectious Disease; Visit Provider Emergency Medicine
DX: R07.89 Other chest pain (principal); I50.9 Heart failure, unspecified; E11.649 Type 2 diabetes mellitus with hypoglycemia without coma; E66.9 Obesity, unspecified; Z79.82 Long term (current) use of aspirin; Z79.899 Other long term (current) drug therapy
CPT/HCPCS: 71045; 80048; 82962; 84484; 85025; 93005; 99285; A4216

== ENCOUNTER 2021-09-10 01:36 | Emergency (ER) | payer MEDICARE, SELFPAY ==
[2021-09-10] VITALS (8 sets, daily range): BP systolic 88–118; BP diastolic 45–60; PULSE 80–97; RESP 15–17; TEMP 36.6; O2SAT 87–94; BMI 41.3
--- NOTE | 2021-09-10 02:50 | RAD_ITS ---
STUDY: X-RAY CHEST REASON FOR EXAM: Female, 66 years old. CHEST PAIN TECHNIQUE: Single AP portable view of the chest. COMPARISON: 05/30/2021 FINDINGS: Patient''s chin superimposed over the thoracic inlet. There are superimposed monitor leads. . Horizontal linear changes in the lung bases not significantly changed since previous examination with stable elevation left hemidiaphragm and eventration of the right hemidiaphragm. There is mild hyperinflation and mild interstitial prominence.. There is no demonstrated pleural abnormality. Normal size heart. Normal mediastinum and robin. Normal visualized pulmonary arteries. Normal visualized aortic arch and descending thoracic aorta. There is demineralization of the osseous structures. The spine and upper abdominal soft tissues are obscured. RAD/Chest 1 View (Portable) IMPRESSION: Atelectasis and/or scarring in the lung bases, stable hyperinflation and mild interstitial disease. No pulmonary edema, congestive heart failure or confluent pneumonia. Electronically Signed: Marily Mccall MD at 3:17 EDT Reading Location ID and State: , Service support ,
[2021-09-10 02:59] LABS: Absolute Lymphocyte Count 1.67 X10^3/uL (0.83-4.51); Absolute Neutrophil Count 6.9 X10^3/uL (2.0-7.7); Basophil# 0.05 X10^3/uL; Basophil% 0.5 % (0-1); Eosinophil# 0.05 X10^3/uL; Eosinophils% 0.5 % (0-5); Hematocrit 37.2 % (37-47); Hemoglobin 11.9 g/dL (12.0-15.0); Lymphocyte # 1.67 X10^3/ul (0.83-4.51); Lymphocyte % 17.8 % (19-41); Mean Corpuscular Hgb 26.2 pg (27.0-32.0); Mean Corpuscular Volume 81.9 fL (81-99); Mean Platelet Vol. 9.2 fl (6.2-12.0); Monocyte# 0.66 X10^3/uL; NRBC Flagged by Analyzer 0 % (0-5); Neutrophil # 6.91 X10^3/uL (2.7-7.7); Neutrophil % 73.7 % (47-70); Platelet Count 306 K/mm3 (150-450); RBC Distribution Width CV 15.5 % (11.6-14.6); Red Blood Count 4.54 M/mm3 (4.2-5.4); White Blood Count 9.4 K/mm3 (4.4-11.0)
[2021-09-10 03:19] LABS: Anion Gap 8 (5-15); BUN 27 mg/dL (7-18); Chloride 101 mmol/L (98-107); Creatinine, Serum 1.69 mg/dL (0.55-1.02); EST Glomerular Filtration Rate 32 mL/min (>60); Est Glom Filt Rate - Afr Amer 39 mL/min (>60); Estimated Creatinine Clearance 32.27 ml/min; Glucose 229 mg/dL (74-106); Potassium 4.2 mmol/L (3.5-5.1); Sodium Level 134 mmol/L (136-145); Troponin-I HS 4 pg/mL (3.0-54.0)
[2021-09-10 03:21] LABS: Magnesium 1.7 mg/dL (1.6-2.6)
[2021-09-10 03:30] LABS: BNP,B-Type NATRIURETIC PEPTIDE 20.7 pg/mL (0-100)
[2021-09-10 04:28] LABS: Troponin-I HS 5 pg/mL (3.0-54.0)
--- NOTE | 2021-09-10 05:19 | EX.ED.DYSGE1 ---
HPI History of Present Illness Chief Complaint: Chest Pain Narrative Narrative: Patient is a 66-year-old female who states that throughout the day she just did not feel right. She states she had a few bouts of nausea and vomiting and was exposed to the elements. She states that she was finally able to go to sleep but was sleeping next to a generator. She states she woke up feeling mild shortness of breath and there was concern for possible carbon monoxide. She did report to EMS that she felt mild chest discomfort upon wakening and with her constellation of symptoms was brought in for further evaluation. She states that she has not had chest pain upon arrival to the ER [facility] Medical History Anxiety Arthritis CHF (congestive heart failure) Depression Diabetes Home Medications aspirin 81 mg chewable tablet 81 mg PO DAILY Heart 07/11/15 [History Last Taken 08/11/18] carvedilol 6.25 mg tablet 6.25 mg PO BID Blood pressure 07/12/15 [History Last Taken 08/11/18] cyclobenzaprine 10 mg tablet 10 mg PO TID PRN PRN Muscle Spasm 07/12/15 [History Last Taken 08/11/18] lisinopril 5 mg tablet 20 mg PO DAILY blood pressure 07/12/15 [History Last Taken 08/11/18] tramadol 50 mg tablet 50 mg PO Q6H PRN PRN Pain 07/12/15 [History Last Taken 08/11/18] atorvastatin 40 mg tablet (Lipitor) 40 mg PO DAILY Cholesterol 05/21/16 [History Last Taken 08/11/18] latanoprost 0.005 % eye drops 1 drp BREAKFAST 05/21/16 [History Last Taken 08/11/18] insulin detemir U-100 100 unit/mL (3 mL) subcutaneous pen (Levemir FlexTouch U-100 Insulin) 100 units subcut BREAKFAST 12/15/16 [History Last Taken 08/11/18] insulin detemir U-100 100 unit/mL (3 mL) subcutaneous pen (Levemir FlexTouch U-100 Insulin) 45 units subcut DINNER 07/24/17 [History Last Taken 08/11/18] nitroglycerin 0.4 mg sublingual tablet 0.4 mg sublingual X1 PRN CHEST PAIN 02/19/19 [History Last Taken Unknown] furosemide 40 mg tablet (Lasix) 40 mg PO DAILY 09/10/21 [History Last Taken Unknown] insulin regular human 100 unit/mL (3 mL) subcutaneous pen (Novolin R Flexpen) unit subcut BID 09/10/21 [History Last Taken Unknown] metformin 1,000 mg tablet 1,000 mg PO BID 09/10/21 [History Last Taken Unknown] rosuvastatin 40 mg sprinkle capsule 40 mg PO DAILY 09/10/21 [History Last Taken Unknown] Allergy/AdvReac Type Severity Reaction Status Date / Time acetaminophen Allergy Unknown Verified 09/10/21 01:37 [From Darvocet-N] ferrous gluconate Allergy Unknown Verified 09/10/21 01:37 propoxyphene Allergy Unknown Verified 09/10/21 01:37 [From Darvocet-N] Sulfa (Sulfonamide Allergy Other Verified 09/10/21 01:37 Antibiotics) fluoxetine [From Prozac] AdvReac Other Verified 09/10/21 01:37 Family History Other Diabetes Heart disease Seizures Surgical History History of partial hysterectomy Social History Smoking Status: Never smoker ROS ROS ED Constitutional Constitutional ED: Denies chills or fever(s) ENT ENT ED: Denies sore throat Cardiovascular Cardiovascular: Denies chest pain Respiratory/Chest Respiratory/Chest: Reports dyspnea; Denies cough Gastrointestinal Gastrointestinal: Reports nausea; Denies abdominal pain, diarrhea or vomiting Genitourinary Genitourinary ED: Denies dysuria Musculoskeletal Musculoskeletal: Denies myalgias Integumentary Denies rash Neurologic Neurologic: Reports weakness; Denies headache(s) Hematologic/Lymphatic Hematologic/Lymphatic: Denies easy bleeding or easy bruising EXAM Physical Exam Const Vital Signs: 09/10/21 01:36 09/10/21 01:41 09/10/21 01:41 Temperature 98 F Temperature Source Oral Pulse Rate 97 Respiratory Rate 16 Respiratory Effort Normal Non-Labored Blood Pressure 88/45 L Blood Pressure Mean 59 Pulse Ox 87 90 Oxygen Delivery Method Room Air Nasal Cannula Oxygen Flow Rate (L/min) 2 09/10/21 01:46 09/10/21 04:00 09/10/21 04:30 Temperature Temperature Source Pulse Rate 80 82 Respiratory Rate 15 17 Respiratory Effort Blood Pressure 118/59 L 110/60 Blood Pressure Mean 78 76 Pulse Ox 94 90 Oxygen Delivery Method Nasal Cannula Room Air Oxygen Flow Rate (L/min) 2 09/10/21 05:00 09/10/21 05:30 Temperature Temperature Source Pulse Rate 84 82 Respiratory Rate 16 15 Respiratory Effort Blood Pressure 107/53 L Blood Pressure Mean Pulse Ox 89 90 Oxygen Delivery Method Room Air Oxygen Flow Rate (L/min) Positive well nourished, well developed and obese General Appearance ED: well developed Nutritional Appearance: obese HEENT Reports dry mucous membranes Mouth ED: Yes dry mucous membranes Mouth: dry mucous membranes Eyes PERRL and EOMs intact bilaterally Neck supple and no JVD Resp normal respiratory effort and clear to auscultation bilaterally Resp Narrative: Breath sounds are diminished throughout but overall clear to auscultation with no signs of acute respiratory distress Cardio regular rate and regular rhythm Rate: other Other Details: Radial pulses are plus 2 out of 4 bilaterally are equal and symmetric GI normal to inspection, nondistended, normoactive bowel sounds, non-tender and non-distended GI Narrative: No voluntary guarding or rigidity no pulsatile mass Auscultation: normoactive bowel sounds Palpation: soft Extremity Extremity Narrative: +2 pitting edema to the bilateral lower extremities that is equal and symmetric. Negative Homans' sign bilaterally Neuro oriented x3 and CN's II-XII intact bilaterally Sensorium / Orientation: alert Psych Psych Narrative: Patient has a flat affect Skin no rashes or lesions noted MDM MDM MDM Narrative Medical decision making narrative: Patient presented to the ER in no acute respiratory distress satting in the low 90s on room air. As there was concern for carbon monoxide exposure she was placed on oxygen as well as capnography. Her initial carboxyhemoglobin value was less than 1 indicating she does not have acute exposure. As EMS reports patient had complaint of chest discomfort at their evaluation I did elect to perform a basic cardiac work. Her blood work revealed no clinically significant findings other than mild elevation to her creatinine from her previous which is up by approximately 0.7. Otherwise her initial and delta troponin did not show any clinically significant changes. Her chest x-ray revealed no acute lung pathology. The patient was ambulated in the ER and as she had improvement in her pulse ox increasing to 92 or 93%. With this she did not have any type of chest discomfort either. Therefore at this time as chest x-ray reveals no acute lung pathology her EKG is sinus rhythm and she has no elevation to her troponin values. Also as her carboxyhemoglobin value upon arrival was less than 5 and indicates she did not have acute carbon monoxide exposure. Therefore at this time as she can ambulate with a steady gait and as she has improvement of her pulse ox as well as the facts listed above I do not feel there is need for admission or progression to CTA as she is not or having pleuritic chest pain. Patient will be discharged home and can follow-up with family doctor for further evaluation. Patient states she is agreeable to this plan Lab Data Attestation: I reviewed the patient's lab results. Labs: Laboratory Results - last 24 hr 09/10/21 09/10/21 09/10/21 02:11 02:11 02:11 WBC 9.4 RBC 4.54 Hgb 11.9 L Hct 37.2 MCV 81.9 MCH 26.2 L MCHC 32.0 RDW Std Deviation 46.0 H RDW Coeff of Mylene 15.5 H Plt Count 306 MPV 9.2 Immature Gran % (Auto) 0.500 Neut % (Auto) 73.7 H Lymph % (Auto) 17.8 L [place] % (Auto) 7.0 Eos % (Auto) 0.5 Baso % (Auto) 0.5 Absolute Neuts (auto) 6.9 Absolute Lymphs (auto) 1.67 Nucleated RBC % 0 Sodium 134 L Potassium 4.2 Chloride 101 Carbon Dioxide 25.0 Anion Gap 8 BUN 27 H Creatinine 1.69 H Estim Creat Clear Calc 32.27 Est GFR (MDRD) Af Amer 39 L Est GFR (MDRD) Non-Af 32 L BUN/Creatinine Ratio 16.0 Glucose 229 H Calcium 9.0 Magnesium 1.7 Troponin I High Sens 4 B-Natriuretic Peptide 09/10/21 09/10/21 02:11 04:07 WBC RBC Hgb Hct MCV MCH MCHC RDW Std Deviation RDW Coeff of Mylene Plt Count MPV Immature Gran % (Auto) Neut % (Auto) Lymph % (Auto) [place] % (Auto) Eos % (Auto) Baso % (Auto) Absolute Neuts (auto) Absolute Lymphs (auto) Nucleated RBC % Sodium Potassium Chloride Carbon Dioxide Anion Gap BUN Creatinine Estim Creat Clear Calc Est GFR (MDRD) Af Amer Est GFR (MDRD) Non-Af BUN/Creatinine Ratio Glucose Calcium Magnesium Troponin I High Sens 5 B-Natriuretic Peptide 20.7 Radiography Diagnostic Testing: Clinical Impression(s) from Imaging Studies Chest X-Ray 09/10/21 02:50 IMPRESSION: Atelectasis and/or scarring in the lung bases, stable hyperinflation and mild interstitial disease. No pulmonary edema, congestive heart failure or confluent pneumonia. Electronically Signed: Marily Mccall MD at 3:17 EDT Reading Location ID and State: , Service support , Chest x-ray as interpreted by the emergency medicine physician reveals no acute infiltrate pneumothorax or pleural effusion Discharge Plan Triage Chief Complaint: Chest Pain ED Provider: Eugene Pearson Dx/Rx/DC Orders Clinical Impression: Nonspecific chest pain, CHF (congestive heart failure) Instructions: ED Heart Failure, Congestive (CHF), ED Chest Pain, Uncertain Cause Prescriptions: No Action aspirin 81 MG tablet,chewable 81 mg PO DAILY Label Comments: blood thinner cyclobenzaprine 10 MG tablet 10 mg PO TID PRN PRN (Reason: Muscle Spasm) Label Comments: Muscle Relaxor carvedilol 6.25 MG tablet 6.25 mg PO BID Label Comments: Blood Pressure/heart tramadol 50 MG tablet 50 mg PO Q6H PRN PRN (Reason: Pain) Label Comments: Pain lisinopril 5 MG tablet 20 mg PO DAILY Label Comments: Blood Pressure latanoprost 1 DROP bottle 1 drp Each Eye BREAKFAST atorvastatin [Lipitor] 40 MG tablet 40 mg PO DAILY Levemir FlexTouch U-100 Insuln 100 UNITS/ML insulin pen 100 units subcut BREAKFAST Label Comments: diabetes Levemir FlexTouch U-100 Insuln 100 UNITS/ML insulin pen 45 units subcut DINNER Label Comments: diabetes nitroglycerin 0.4 MG tablet 0.4 mg sublingual X1 PRN (Reason: CHEST PAIN) furosemide [Lasix] 40 mg Tablet 40 mg PO DAILY metformin 1,000 mg Tablet 1,000 mg PO BID Novolin R Flexpen 100 unit/mL (3 mL) Insulin Pen SUBCUT BID Rx Instructions: SSI rosuvastatin 40 mg Capsule, Sprinkle 40 mg PO DAILY Primary Care Provider: Edwin Perez Referrals: Edwin Perez MD [Primary Care Provider] - Activity Restrictions/Additional Instructions: Please continue your medications as directed by your doctor and return to the ER should you have any further concerns Disposition Disposition: Home, Self Care Discharge Date/Time: 09/10/21 05:44
== END 2021-09-10 05:44 | disposition home or self-care (01) ==
PROVIDERS: Emergency Provider Emergency Medicine; PCP Internal Medicine Infectious Disease; Visit Provider Emergency Medicine
DX: R07.9 Chest pain, unspecified (principal); I50.9 Heart failure, unspecified; E11.9 Type 2 diabetes mellitus without complications; Z79.4 Long term (current) use of insulin; E66.9 Obesity, unspecified; Z79.82 Long term (current) use of aspirin; Z79.84 Long term (current) use of oral hypoglycemic drugs; Z79.899 Other long term (current) drug therapy
CPT/HCPCS: 71045; 80048; 83735; 83880; 84484; 85025; 87428; 93005; 99285; A4216

== ENCOUNTER → 2021-12-22 | Outpatient (CLI) | payer MEDICARE, SELFPAY ==
--- NOTE | 2021-12-22 10:54 | PCM.OPRPT ---
Report of Operation Date of Procedure: 12/22/21 Pre-Operative Diagnosis: abnormal calcifications on right breast mammograms Post-Operative Diagnosis: same Surgery/Procedure Performed:: right stereotactic breast biopsy Surgeon: Marion Bates Type of Anesthesia: Local Specimen's removed: right breast tissue Estimated Blood Loss (mL): minimal Description of Procedure: After informed consent was given, the patient was brought into the Breast Biopsy suite. Appropriate time out protocol was followed. The patient was placed in the prone position on the stereotactic biopsy table. The patient?s left/right breast was then placed in the opening at the head of the biopsy table. A licensed practical nurse compression mammogram was then obtained in the CC/lateral view. The suspicious radiological lesion was thus identified. Stereo pictures of the lesion were then taken for XYZ coordinates. The Mammotome biopsy stylus was then positioned where it would be entering into the patient?s breast. The skin at this site was then cleansed with a surgical skin preparation. The skin and subcutaneous tissues at this site were then infiltrated with 1% xylocaine. A small skin incision was made with an 11 blade scalpel. The biopsy stylus was then positioned into the patient?s breast at the proper coordinates of depth. Using the Mammotome vacuum-assist device, several core samples of breast tissue were obtained. A specimen mammogram was the obtained. It revealed that the abnormal calcifications were within the specimen. I reviewed this personally and concluded that the tissue sampling was adequate. A hemostatic marker clip was then placed into the biopsy cavity and a licensed practical nurse film revealed that it was properly deployed. The patient was then placed in the supine position and pressure was applied to the breast until no active bleeding was noted. Steristrips were applied to reapproximate the skin. A unilateral mammogram in the CC and MLO view were then taken which revealed that the marker clip was in the same area as the previous suspicious lesion. The patient tolerated the procedure well and was discharged from the Breast Biopsy suite in good condition.
== END | disposition home or self-care (01) ==
PROVIDERS: PCP Internal Medicine Infectious Disease; Visit Provider Surgery
DX: R92.0 Mammographic microcalcification found on diagnostic imaging of breast (principal)